=== PATIENT | male | born 1975 | race Caucasian/White ===

== ENCOUNTER 2018-05-07 05:13 | Day surgery (SDC) | payer BC, SELFPAY ==
[2018-04-23 15:44] VITALS: BMI 34.4
[2018-05-07] VITALS (16 sets, daily range): BP systolic 114–163; BP diastolic 75–104; PULSE 65–102; RESP 16; TEMP 36.4–37; O2SAT 97–100; BMI 34.1
--- NOTE | 2018-05-07 06:30 | COLBX_PTH ---
PATIENT: MANUEL PEREA LOC: EN U#:[id number] AGE/SX: 42/M ROOM: RE05/07/[address]: Dr. Jorge Gonzalez MD : 1975 BED: DIS: 05/07/2018 SPEC #: [id number] RECD: 05/07/18 09:33 STATUS: KEVIN RIGOBERTO #: [id number] CORRINE: 05/07/18 06:[address]: Jorge Gonzalez DEPT: SURGICAL PATHOLOGY RECD BY: Daisy Izaguirre ENTERED: 05/07/18 11:09 SP TYPE: COLON BX OT DR: Dr. Tami Aguayo MD Tissues: A - Transverse colon B - Descending colon C - Rectum, NOS Procedures: Surgery Specimen Level IV HEADER OPERATION: Colonoscopy (MOD) PRE-OP DIAGNOSIS: Rectal bleeding TISSUE SUBMITTED: A. Transverse colon polyp, B. Descending colon polyp, C. Rectal polyp MICROSCOPIC DIAGNOSIS A. Transverse colon polyp, biopsy: Tubular adenoma. B. Descending colon polyp, biopsy: Fragments of tubular adenoma. C. Rectal polyp, biopsy: Tubular adenoma. Fragments of fecal material. SJ:stu 05/08/18 MICROSCOPIC DESCRIPTION Slides are reviewed. GROSS DESCRIPTION A - Received in fixative is one container labeled with the patient's name and designated cecal polyp. The specimen consists of one irregular fragment of light rivera soft tissue that measures 0.3 x 0.3 x 0.1 cm. The specimen is totally submitted in one cassette. B - Received in fixative is one container labeled with the patient's name and designated descending colon polyp. The specimen consists of multiple irregular fragments of light rivera soft tissue that in aggregate measure 0.7 x 0.5 x 0.1 cm. The specimen is totally submitted in one cassette. C - Received in fixative is one container labeled with the patient's name and designated rectal polyps. The specimen consists of multiple irregular fragments of light rivera soft tissue including fecal debris that in aggregate measure 1.5 x 1 x 0.2 cm. The specimen is totally submitted in one cassette. / AM:stu 05/07/18 TC:1 CPT: 63091 x3
--- NOTE | 2018-05-07 07:19 | OP.ENDO_ITS ---
Patient Name: Jaren Styles Procedure Date: 05/07/2018 6:02 AM Date of : 1975 Age: 42 Procedure: Colonoscopy Indications: Rectal bleeding Providers: Jorge Gonzalez MD Referring MD: Tami Aguayo Medicines: Midazolam 8 mg IV, Meperidine 200 mg IV Patient Profile: Last Colonoscopy: none. The patient's first colonoscopy is today. Last Colonoscopy: none. The patient's first colonoscopy is today. Complications: No immediate complications. Procedure: Pre-Anesthesia Assessment: - Prior to the procedure, a History and Physical was performed, and patient medications and allergies were reviewed. The patient's tolerance of previous anesthesia was also reviewed. The risks and benefits of the procedure and the sedation options and risks were discussed with the patient. All questions were answered, and informed consent was obtained. Prior Anticoagulants: The patient has taken no previous anticoagulant or antiplatelet agents. ASA Grade Assessment: II - A patient with mild systemic disease. After reviewing the risks and benefits, the patient was deemed in satisfactory condition to undergo the procedure. After I obtained informed consent, the scope was passed under direct vision. Throughout the procedure, the patient's blood pressure, pulse, and oxygen saturations were monitored continuously. The colonoscope was introduced through the anus and advanced to the hepatic flexure. The colonoscopy was extremely difficult due to the patient's discomfort during the procedure. The patient tolerated the procedure poorly. The quality of the bowel preparation was good. Moderate Sedation: Moderate (conscious) sedation was personally administered by the endoscopist. The following parameters were monitored: oxygen saturation, heart rate, blood pressure, and response to care. Total physician intraservice time was 20 minutes. Scope In: 6:49:39 AM Scope Out: 7:09:10 AM Total Procedure Duration Time 0 hours 19 minutes 31 seconds Findings: The perianal and digital rectal examinations were normal. A 4 mm polyp was found in the mid transverse colon. The polyp was sessile. The polyp was removed with a cold biopsy forceps. Resection and retrieval were complete. A 5 mm polyp was found in the descending colon. The polyp was sessile. The polyp was removed with a cold biopsy forceps. Resection and retrieval were complete. A 6 mm polyp was found in the rectum. The polyp was sessile. The polyp was removed with a hot snare. Resection and retrieval were complete. Impression: - One 4 mm polyp in the mid transverse colon, removed with a cold biopsy forceps. Resected and retrieved. - One 5 mm polyp in the descending colon, removed with a cold biopsy forceps. Resected and retrieved. - One 6 mm polyp in the rectum, removed with a hot snare. Resected and retrieved. Procedure was incomplete secondary to patient anxiety. Will reschedule today with anesthesia Recommendation: - Repeat colonoscopy in 3 years for surveillance based on pathology results. - Continue present medications. Procedure Code(s): --- Professional --- 07324, 52, Colonoscopy, flexible; with removal of tumor(s), polyp(s), or other lesion(s) by snare technique 45074, 59,52, Colonoscopy, flexible; with biopsy, single or multiple 13660, 59, Moderate sedation services provided by the same physician or other qualified health patient care coordinator performing the diagnostic or therapeutic service that the sedation supports, requiring the presence of an independent trained observer to assist in the monitoring of the patient's level of consciousness and physiological status; initial 15 minutes of intraservice time, patient age 5 years or older Diagnosis Code(s): --- Professional --- D12.3, Benign neoplasm of transverse colon (hepatic flexure or splenic flexure) D12.4, Benign neoplasm of descending colon K62.1, Rectal polyp K62.5, Hemorrhage of anus and rectum CPT copyright 2017 [employer]. All rights reserved. The codes documented in this report are preliminary and upon jigger crown pouncing machine operator review may be revised to meet current compliance requirements. Jorge Gonzalez MD 05/07/2018 7:19:03 AM This report has been signed electronically. Number of Addenda: 0 Note Initiated On: 05/07/2018 6:02 AM
[2018-05-07 07:40] LABS: Bedside Glucose 258 mg/dL (70-110)
--- NOTE | 2018-05-07 11:31 | OP.ENDO_ITS ---
Patient Name: Jaren Styles Procedure Date: 05/07/2018 10:54 AM Date of : 1975 Age: 42 Procedure: Colonoscopy Indications: Rectal bleeding Providers: Jorge Gonzalez MD Referring MD: Tami Aguayo Medicines: See the Anesthesia note for documentation of the administered medications Patient Profile: Last Colonoscopy: none. The patient's first colonoscopy is today. Last Colonoscopy: none. The patient's first colonoscopy is today. Last Colonoscopy: none. The patient's first colonoscopy is today. Complications: No immediate complications. Procedure: Pre-Anesthesia Assessment: - Prior to the procedure, a History and Physical was performed, and patient medications and allergies were reviewed. The patient's tolerance of previous anesthesia was also reviewed. The risks and benefits of the procedure and the sedation options and risks were discussed with the patient. All questions were answered, and informed consent was obtained. Prior Anticoagulants: The patient has taken no previous anticoagulant or antiplatelet agents. ASA Grade Assessment: II - A patient with mild systemic disease. After reviewing the risks and benefits, the patient was deemed in satisfactory condition to undergo the procedure. - Prior to the procedure, a History and Physical was performed, and patient medications and allergies were reviewed. The patient's tolerance of previous anesthesia was also reviewed. The risks and benefits of the procedure and the sedation options and risks were discussed with the patient. All questions were answered, and informed consent was obtained. Prior Anticoagulants: The patient has taken no previous anticoagulant or antiplatelet agents. ASA Grade Assessment: II - A patient with mild systemic disease. After reviewing the risks and benefits, the patient was deemed in satisfactory condition to undergo the procedure. After I obtained informed consent, the scope was passed under direct vision. Throughout the procedure, the patient's blood pressure, pulse, and oxygen saturations were monitored continuously. The adult colonoscope was introduced through the anus and advanced to the cecum, identified by appendiceal orifice and ileocecal valve. The colonoscopy was performed without difficulty. The patient tolerated the procedure well. The quality of the bowel preparation was adequate to identify polyps. The ileocecal valve was photographed. Scope In: 11:05:24 AM Scope Withdrawal Time 0 hours 7 minutes 54 seconds Scope Out: 11:19:58 AM Total Procedure Duration Time 0 hours 14 minutes 34 seconds Findings: The perianal and digital rectal examinations were normal. The colon (entire examined portion) appeared normal. Impression: - The entire examined colon is normal. - No specimens collected. This was the second colonoscopy performed on him today. He was re-assessed for MAC anesthesia and an adult colonoscope was utilized. With this I was able to achieve the cecum. No additional polyps identified other than the three polyps earlier today. Will notify pt of path and recommendations. No rectal bleeding today. Suspect previous history likely hemorrhoids or resolved fissure. Pt has not had bleeding since his office visit and the start of the hydrocoritsone suppositories and diltiazem cream Recommendation: - Discharge patient to home. - Resume previous diet. - Continue present medications. - Await pathology results. - Telephone my office for pathology results in 1 week. - Repeat colonoscopy in 3 years for surveillance based on pathology results. Procedure Code(s): --- Professional --- 56254, Colonoscopy, flexible; diagnostic, including collection of specimen(s) by brushing or washing, when performed (separate procedure) Diagnosis Code(s): --- Professional --- K62.5, Hemorrhage of anus and rectum CPT copyright 2017 [employer]. All rights reserved. The codes documented in this report are preliminary and upon catechist review may be revised to meet current compliance requirements. Jorge Gonzalez MD 05/07/2018 11:30:52 AM This report has been signed electronically. Number of Addenda: 0 Note Initiated On: 05/07/2018 10:54 AM
--- OUTSIDE RECORDS SUMMARY | 2018-08-08 15:59 | XMS RPT_ITS ---
:1975 Author Organization [facility] Care Team Providers Name Role Phone Mary Carmenbul, Jorge Attending Unavailable Jolliff, Tami Referring Unavailable Cebul, Jorge Attending Unavailable Cebul, Jorge Referring Unavailable Cebul, Jorge Attending Unavailable Jolliff, Tami Primary Care Unavailable Jolliff, Tami Referring Unavailable PANCHO, SHARON M Attending Unavailable PANCHO, SHARON M Referring Unavailable PANCHO, SHARON M Referring Unavailable PANCHO, SHARON Attending Unavailable PANCHO, SHARON Referring Unavailable PANCHO, SHARON Attending Unavailable PANCHO, SHARON Referring Unavailable Jolliff, Tami Primary Care Unavailable PANCHO, SHARON Referring Unavailable Jolliff, Taim Primary Care Unavailable PROBLEMS PROBLEMS DATE TYPE CONDITION / CODE ATTENDING STATUS SOURCE 06/05/2018 Unknown K62.5 - Cebul, Jorge Active [facility] anus and rectum / Hospital K62.5(ICD-10) Repository 06/05/2018 Unknown K62.1 - Rectal Cebul, Jorge Active [place] polyp / Community K62.1(ICD-10) Hospital Repository 06/05/2018 Unknown D12.4 - Benign Cebul, Jorge Active [place] [facility] descending colon Hospital / D12.4(ICD-10) Repository 06/05/2018 Unknown D12.3 - Benign Cebul, Jorge Active [place] [facility] transverse colon Hospital / D12.3(ICD-10) Repository 04/27/2016 Active Type 1 diabetes [facility] mellitus with Other [place] unspecified Repository diabetic retinopathy without macular edema / E10.319(ICD-10) 05/03/2018 Active Family history of [facility] malignant Other [place] neoplasm of Repository prostate / Z80.42(ICD-10) 05/03/2018 Active Morbid (severe) [facility] obesity due to Other [place] excess calories / Repository E66.01(ICD-10) 05/03/2018 Active Body mass index [facility] (bmi) 36.0-36.9, Other [place] adult / Repository Z68.36(ICD-10) 04/27/2016 Admitting Unknown / [facility] UNK(Unknown) [facility] Repository PROCEDURES PROCEDURES No Procedure Records FoundRESULTS RESULTS PROGRESS Observed: 06/08/2018 Status: COMPLETED Source: [facility] 6:15 AM CLINIC OTHER CAMPUS REPOSITORY HNO ID: [id number] Author: Sharon M Pancho Service: (none) Author Type: Physician Type: Progress Notes Filed: 06/10/2018 7:12 PM Note Text: Christopher Styles is a 42 year old male who presents to follow up for Diabetes Diabetes Pertinent negatives for hypoglycemia include no dizziness, headaches, nervousness/anxiousness, seizures or tremors. Pertinent negatives for diabetes include no blurred vision, no chest pain, no polydipsia, no weakness and no weight loss. Current medication regimen: basal bolus. Blood glucose log: reviewed meter. HGBA1C (%) Date Value 05/03/2018 6.4 04/27/2017 6.2 ) BMI 35.07 kg/(m2) Discussed the patient's BMI with him. The BMI is above average; BMI management plan is completed. Current complications: Compliance: Good He is doing well Last 2 Encounter Wt Readings: Date: Wt: 05/03/2018 120.6 kg (265 lb 12.8 oz) 04/27/2017 118.8 kg (262 lb) Review of Systems Constitutional: Negative for chills, diaphoresis, fever, malaise/fatigue and weight loss. HENT: Negative for congestion, ear discharge, ear pain, hearing loss, nosebleeds, sore throat and tinnitus. Eyes: Negative for blurred vision, double vision, photophobia, pain, discharge and redness. Respiratory: Negative for cough, hemoptysis, sputum production, shortness of breath and wheezing. Cardiovascular: Negative for chest pain, palpitations, orthopnea, claudication, leg swelling and PND. Gastrointestinal: Negative for abdominal pain, blood in stool, constipation, diarrhea, heartburn, melena, nausea and vomiting. Genitourinary: Negative for dysuria, flank pain, frequency, hematuria and urgency. Musculoskeletal: Positive for back pain. Negative for falls, joint pain, myalgias and neck pain. Skin: Negative for itching and rash. Neurological: Negative for dizziness, tingling, tremors, sensory change, speech change, focal weakness, seizures, loss of consciousness, weakness and headaches. Endo/Heme/Allergies: Negative for environmental allergies and polydipsia. Does not bruise/bleed easily. Psychiatric/Behavioral: Negative for depression, hallucinations, memory loss, substance abuse and suicidal ideas. The patient is not nervous/anxious and does not have insomnia. 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 ([facility]) - Vitamin D deficiency PAST SURGICAL HISTORY Procedure Laterality Date - APPENDECTOMY 2004 - PAST SURGICAL HISTORY OF lump on posterior neck removed x3 - REM LESION FACE,EAR,EYE 2.1-3 CM 12-22-15 OCCIPITAL AREA FAMILY HISTORY Problem Relation Age of Onset - Breast Cancer Maternal Grandmother - Stroke Maternal Grandmother Social History Marital status: Spouse name: Years of education: Number of children: Social History Main Topics Smoking status: Never Smoker Smokeless tobacco: Never Used Alcohol use: Yes Comment: occasional - weekends Drug use: No Current Meds quinapril (ACCUPRIL) 10 mg tablet Take 1 tablet by mouth once daily. insulin needles, DISPOSABLE, (PEN NEEDLE) 31 gauge x 5/16 ndle 1 Each four times daily. insulin degludec (TRESIBA FLEXTOUCH U-200) 200 unit/mL (3 mL) injection Inject 38 Units subcutaneously every 24 hours. ONETOUCH ULTRA TEST test strip TEST 6-8 TIMES DAILY insulin aspart (NOVOLOG FLEXPEN) 100 unit/mL inpn Inject 20 Units subcutaneously three times daily with meals. diclofenac potassium (CATAFLAM) 50 mg tablet Take 50 mg by mouth twice daily. calcipotriene (DOVONEX) 0.005 % oint once daily. Multivitamin capsule Take 1 capsule by mouth once daily. ascorbic acid (VITAMIN C) 500 mg tablet Take 500 mg by mouth once daily. Cholecalciferol, Vitamin D3, (VITAMIN D-3) 2,000 unit cap Take 1 tablet by mouth once daily. Blood Sugar Diagnostic, Drum (ACCU-CHEK COMPACT TEST) strp For testing 6-8 times daily Lancets (ACCU-CHEK SOFTCLIX LANCETS) lancets Use as instructed Blood-Glucose Meter (ACCU-CHEK SHARAD) misc 8 times daily Objective BP 124/84 Ht 6' 1 (1.85m) Wt 265 lb 12.8 oz (120.6kg) BMI 35.08 kg/(m2). Physical Exam Constitutional: He is oriented to person, place, and time and well-developed, well-nourished, and in no distress. HENT: Head: Normocephalic and atraumatic. Mouth/Throat: Oropharynx is clear and moist. Eyes: Pupils are equal, round, and reactive to light. Conjunctivae and EOM are normal. Neck: Neck supple. Carotid bruit is not present. No thyromegaly present. Cardiovascular: Normal rate, regular rhythm and normal heart sounds. No murmur heard. Pulmonary/Chest: Effort normal and breath sounds normal. Abdominal: Soft. Musculoskeletal: He exhibits no edema. Lymphadenopathy: He has no cervical adenopathy. Neurological: He is alert and oriented to person, place, and time. No cranial nerve deficit. Gait normal. Skin: Skin is warm and dry. Psychiatric: Mood, memory, affect and judgment normal. Feet:Shoes and socks removed, normal distal pulses and vibratory perception normal. ASSESSMENT/PLAN: 1. Type 1 diabetes mellitus with retinopathy without macular edema, unspecified laterality, unspecified retinopathy severity (HCC) - ICD9: 250.51, 362.01, ICD10: E10.319 (primary diagnosis) Controlled. - Continue current medications - HGBA1C B/O (AG) - ALBUMIN/CREAT RATIO RND UR - COMP METABOLIC PANEL - LIPID PANEL BASIC - TSH BLD - LANCETS - BLOOD-GLUCOSE METER 2. Family history of prostate cancer - ICD9: V16.42, ICD10: Z80.42 - PSA/PROSTSPECAG SCRN 3. Class 2 severe obesity due to excess calories with serious comorbidity and body mass index (BMI) of 36.0 to 36.9 in adult (HCC) - ICD9: 278.01, V85.36, ICD10: E66.01, Z68.36 Nutritional counseling provided, avoid flour, sugar, and artificial sweeteners. Sharon Deleon MD OBSOLETE Observed: 06/01/2018 Status: COMPLETED Source: [facility] 12:00 AM CLINIC OTHER CAMPUS REPOSITORY Refill (AGENDOG) MANUEL STYLES ([id number]) 1975 Renato HERMOSILLO Date Time Provider Department 06/01/18 SHARON DELEON During your visit today, we recorded the following information about you: Yaz Brown 06/01/2018 9:43 AM Signed Last visit 04/2018 Next visit 04/2019 Yaz Brown Allergies As of Date: 06/01/2018 (No Known Allergies) Date Reviewed: 05/03/2018 Reviewed by: Era Dalton - Fully Assessed Reason for Visit: Refill Request [94] Order(s):Blood Sugar Diagnostic, Drum (ACCU-CHEK COMPACT TEST) strpFor testing 6-8 times dailyDisp: 700 StripRfl: 1 Prescriptions as of 06/01/2018 Sig: BLOOD SUGAR DIAGNOSTIC, DRUM-* For testing 6-8 times daily QUINAPRIL 10 MG TABLET Take 1 tablet by mouth once d* LANCETS Use as instructed BLOOD-GLUCOSE METER 8 times daily PEN NEEDLE, DIABETIC 31 GAUGE* 1 Each four times daily. INSULIN DEGLUDEC (U-200) 200 * Inject 38 Units subcutaneousl* ONETOUCH ULTRA TEST STRIPS TEST 6-8 TIMES DAILY INSULIN ASPART U-100 100 UNI* Inject 20 Units subcutaneousl* DICLOFENAC POTASSIUM 50 MG TA* Take 50 mg by mouth twice jj* CALCIPOTRIENE 0.005 % TOPICAL* once daily. MULTIVITAMIN CAPSULE Take 1 capsule by mouth once * ASCORBIC ACID (VITAMIN C) 500* Take 500 mg by mouth once jj* CHOLECALCIFEROL (VITAMIN D3) * Take 1 tablet by mouth once d* Problem List As Of Date 06/01/2018 Noted Resolved Skin lesion [L98.9] INVALID FOR* Diabetes mellitus type 1, controlled, without c*INVALID FOR*04/28/2017 Constitutional obesity [E66.8] INVALID FOR* Lipoma of neck [D17.0] INVALID FOR* Type 1 diabetes mellitus with diabetic retinopa* Autoimmune lymphocytic chronic thyroiditis [E06* Insulin long-term use (HCC) [Z79.4] Obesity (BMI 30-39.9) [E66.9] Diabetes mellitus type I, controlled (HCC) [E10* Prescriptions ordered this encounter Disp Refills Start End BLOOD SUGAR DIAGNOSTIC, DRUM-TYPE ST* 700 * 1 06/04/2018 Sig: For testing 6-8 times daily Encounter Status:Closed by YAZ BROWN on 06/07/18 OPERATIVE REPORT - Observed: 05/07/2018 Status: F Source: [facility] [facility] 11:31 AM [facility] Medical Records Department [address] [place] [id number] Operative Report - Endoscopy MR#: [id number] Acct: [id number] Name: MANUEL STYLES Rep #: [id number] : 1975 42 From: Jorge Gonzalez MD PCP: Tami Aguayo MD [place] [facility] [place] Name: Manuel Styles Procedure Date: 05/07/2018 10:54 AM Date of : 1975 Age: 42 Procedure: Colonoscopy Indications: Rectal bleeding Providers: Jorge Gonzalez MD Referring MD: Tami Aguayo Medicines: See the Anesthesia note for documentation of the administered medications Patient Profile: Last Colonoscopy: none. The patient's first colonoscopy is today. Last Colonoscopy: none. The patient's first colonoscopy is today. Last Colonoscopy: none. The patient's first colonoscopy is today. Complications: No immediate complications. Procedure: Pre-Anesthesia Assessment: - Prior to the procedure, a History and Physical was performed, and patient medications and allergies were reviewed. The patient's tolerance of previous anesthesia was also reviewed. The risks and benefits of the procedure and the sedation options and risks were discussed with the patient. All questions were answered, and informed consent was obtained. Prior Anticoagulants: The patient has taken no previous anticoagulant or antiplatelet agents. ASA Grade Assessment: II - A patient with mild systemic disease. After reviewing the risks and benefits, the patient was deemed in satisfactory condition to undergo the procedure. - Prior to the procedure, a History and Physical was performed, and patient medications and allergies were reviewed. The patient's tolerance of previous anesthesia was also reviewed. The risks and benefits of the procedure and the sedation options and risks were discussed with the patient. All questions were answered, and informed consent was obtained. Prior Anticoagulants: The patient has taken no previous anticoagulant or antiplatelet agents. ASA Grade Assessment: II - A patient with mild systemic disease. After reviewing the risks and benefits, the patient was deemed in satisfactory condition to undergo the procedure. After I obtained informed consent, the scope was passed under direct vision. Throughout the procedure, the patient's blood pressure, pulse, and oxygen saturations were monitored continuously. The adult colonoscope was introduced through the anus and advanced to the cecum, identified by appendiceal orifice and ileocecal valve. The colonoscopy was performed without difficulty. The patient tolerated the procedure well. The quality of the bowel preparation was adequate to identify polyps. The ileocecal valve was photographed. Scope In: 11:05:24 AM Scope Withdrawal Time 0 hours 7 minutes 54 seconds Scope Out: 11:19:58 AM Total Procedure Duration Time 0 hours 14 minutes 34 seconds Findings: The perianal and digital rectal examinations were normal. The colon (entire examined portion) appeared normal. Impression: - The entire examined colon is normal. - No specimens collected. This was the second colonoscopy performed on him today. He was re-assessed for MAC anesthesia and an adult colonoscope was utilized. With this I was able to achieve the cecum. No additional polyps identified other than the three polyps earlier today. Will notify pt of path and recommendations. No rectal bleeding today. Suspect previous history likely hemorrhoids or resolved fissure. Pt has not had bleeding since his office visit and the start of the hydrocoritsone suppositories and diltiazem cream Recommendation: - Discharge patient to home. - Resume previous diet. - Continue present medications. - Await pathology results. - Telephone my office for pathology results in 1 week. - Repeat colonoscopy in 3 years for surveillance based on pathology results. Procedure Code(s): --- Professional --- 75117, Colonoscopy, flexible; diagnostic, including collection of specimen(s) by brushing or washing, when performed (separate procedure) Diagnosis Code(s): --- Professional --- K62.5, Hemorrhage of anus and rectum CPT copyright 2017 [employer]. All rights reserved. The codes documented in this report are preliminary and upon chief librarian branch review may be revised to meet current compliance requirements. Jorge Gonzalez MD 05/07/2018 11:30:52 AM This report has been signed electronically. Number of Addenda: 0 Note Initiated On: 05/07/2018 10:54 AM 05/07/18 1131 Date Jorge Gonzalez MD Cosigner Signature: Date (if indicated) CC: Tami Aguayo MD; Jorge Gonzalez MD Date Dictated: 05/07/18 1054 Date Transcribed: Can Vacuum Tester: LINDSEY Signed BEDSIDE GLUCOSE Collected: 05/07/2018 Status: F Source: [place] 7:20 AM [facility] REPOSITORY TYPE CODE TESTS RESULT OUT OF REFERENCE UNITS RANGE LAB L501.080 70-110 mg/dL High BEDSIDE GLU 258 Result Comment: MANAGEMENT OF PATIENT CARE PER NURSING PROTOCOL Performed By: #### L501.080 #### [facility] Point of Care [address] [place], [place] [address] OPERATIVE REPORT - Observed: 05/07/2018 Status: F Source: [facility] 7:19 AM [facility] REPOSITORY [facility] Medical Records Department [address] [place] [address] Operative Report - Endoscopy MR#: [id number] Acct: [id number] Name: MANUEL STYLES Rep #: [id number] : 1975 42 From: Jorge Gonzalez MD PCP: Tami Aguayo MD [place] [facility] [place] Name: Manuel Styles Procedure Date: 05/07/2018 6:02 AM Date of : 1975 Age: 42 Procedure: Colonoscopy Indications: Rectal bleeding Providers: Jorge Gonzalez MD Referring MD: Tami Aguayo Medicines: Midazolam 8 mg IV, Meperidine 200 mg IV Patient Profile: Last Colonoscopy: none. The patient's first colonoscopy is today. Last Colonoscopy: none. The patient's first colonoscopy is today. Complications: No immediate complications. Procedure: Pre-Anesthesia Assessment: - Prior to the procedure, a History and Physical was performed, and patient medications and allergies were reviewed. The patient's tolerance of previous anesthesia was also reviewed. The risks and benefits of the procedure and the sedation options and risks were discussed with the patient. All questions were answered, and informed consent was obtained. Prior Anticoagulants: The patient has taken no previous anticoagulant or antiplatelet agents. ASA Grade Assessment: II - A patient with mild systemic disease. After reviewing the risks and benefits, the patient was deemed in satisfactory condition to undergo the procedure. After I obtained informed consent, the scope was passed under direct vision. Throughout the procedure, the patient's blood pressure, pulse, and oxygen saturations were monitored continuously. The colonoscope was introduced through the anus and advanced to the hepatic flexure. The colonoscopy was extremely difficult due to the patient's discomfort during the procedure. The patient tolerated the procedure poorly. The quality of the bowel preparation was good. Moderate Sedation: Moderate (conscious) sedation was personally administered by the endoscopist. The following parameters were monitored: oxygen saturation, heart rate, blood pressure, and response to care. Total physician intraservice time was 20 minutes. Scope In: 6:49:39 AM Scope Out: 7:09:10 AM Total Procedure Duration Time 0 hours 19 minutes 31 seconds Findings: The perianal and digital rectal examinations were normal. A 4 mm polyp was found in the mid transverse colon. The polyp was sessile. The polyp was removed with a cold biopsy forceps. Resection and retrieval were complete. A 5 mm polyp was found in the descending colon. The polyp was sessile. The polyp was removed with a cold biopsy forceps. Resection and retrieval were complete. A 6 mm polyp was found in the rectum. The polyp was sessile. The polyp was removed with a hot snare. Resection and retrieval were complete. Impression: - One 4 mm polyp in the mid transverse colon, removed with a cold biopsy forceps. Resected and retrieved. - One 5 mm polyp in the descending colon, removed with a cold biopsy forceps. Resected and retrieved. - One 6 mm polyp in the rectum, removed with a hot snare. Resected and retrieved. Procedure was incomplete secondary to patient anxiety. Will reschedule today with anesthesia Recommendation: - Repeat colonoscopy in 3 years for surveillance based on pathology results. - Continue present medications. Procedure Code(s): --- Professional --- 26551, 52, Colonoscopy, flexible; with removal of tumor(s), polyp(s), or other lesion(s) by snare technique 33329, 59,52, Colonoscopy, flexible; with biopsy, single or multiple 77511, 59, Moderate sedation services provided by the same physician or other qualified health acute care registered nurse performing the diagnostic or therapeutic service that the sedation supports, requiring the presence of an independent trained observer to assist in the monitoring of the patient's level of consciousness and physiological status; initial 15 minutes of intraservice time, patient age 5 years or older Diagnosis Code(s): --- Professional --- D12.3, Benign neoplasm of transverse colon (hepatic flexure or splenic flexure) D12.4, Benign neoplasm of descending colon K62.1, Rectal polyp K62.5, Hemorrhage of anus and rectum CPT copyright 2017 [employer]. All rights reserved. The codes documented in this report are preliminary and upon chief librarian branch review may be revised to meet current compliance requirements. Jorge Gonzalez MD 05/07/2018 7:19:03 AM This report has been signed electronically. Number of Addenda: 0 Note Initiated On: 05/07/2018 6:02 AM 05/07/18 0719 Date Jorge Gonzalez MD Cosigner Signature: Date (if indicated) CC: Tami Aguayo MD; Jorge Gonzalez MD Date Dictated: 05/07/18601 Date Transcribed: Can Vacuum Tester: LINDSEY Signed COLON BIOPSY (CHOOSE Observed: 05/07/2018 Status: F Source: [place] [facility]) 6:30 AM [facility] REPOSITORY Patient: MANUEL STYLES : 1975 (42/M) Acct Num: [id number] Phys: Carlos SHAW,Jorge Unit Num: [id number] Loc: EN Specimen: [id number] Received: 05/07/18932 Spec Type: COLON BX TISSUES 1 TISSUES: A. Transverse colon B. Descending colon C. Rectum, NOS GROSS DESCRIPTION A - Received in fixative is one container labeled with the patient's name and designated cecal polyp. The specimen consists of one irregular fragment of light rivera soft tissue that measures 0.3 x 0.3 x 0.1 cm. The specimen is totally submitted in one cassette. B - Received in fixative is one container labeled with the patient's name and designated descending colon polyp. The specimen consists of multiple irregular fragments of light rivera soft tissue that in aggregate measure 0.7 x 0.5 x 0.1 cm. The specimen is totally submitted in one cassette. C - Received in fixative is one container labeled with the patient's name and designated rectal polyps. The specimen consists of multiple irregular fragments of light rivera soft tissue including fecal debris that in aggregate measure 1.5 x 1 x 0.2 cm. The specimen is totally submitted in one cassette. / AM:stu 05/07/18 TC:1 CPT: 62928 x3 HEADER OPERATION: Colonoscopy (MOD) PRE-OP DIAGNOSIS: Rectal bleeding TISSUE SUBMITTED: A. Transverse colon polyp, B. Descending colon polyp, C. Rectal polyp MICROSCOPIC DESCRIPTION Slides are reviewed. MICROSCOPIC DIAGNOSIS A. Transverse colon polyp, biopsy: Tubular adenoma. B. Descending colon polyp, biopsy: Fragments of tubular adenoma. C. Rectal polyp, biopsy: Tubular adenoma. Fragments of fecal material. SJ:stu 05/08/18 Signed Mars Frye MD 05/08/18 <signature on file> Performed By: #### PCOLBX #### [facility] [address] [place], [address] COMPREHENSIVE PANEL Collected: 05/03/2018 Status: F Source: [facility] 2:45 PM [facility] REPOSITORY TYPE CODE TESTS RESULT OUT OF REFERENCE UNITS RANGE LAB NA(LOINC) 136-145 mEq/L Sodium Blood 139 LAB K(LOINC) 3.5-5.1 mEq/L Potassium Blood 4.2 LAB CL(LOINC) 98-107 mEq/L Chloride Blood 103 LAB CO2(LOINC) 21-32 mEq/L CO2 Blood 30 LAB GLU(LOINC) 70-99 mg/dL Low Glucose Blood 68 LAB BUN(LOINC) 7-18 mg/dL BUN Blood 16 LAB CREA(LOINC 0.67-1.17 mg/dL ) Creatinine Blood 0.99 LAB CA(LOINC) 8.5-10.1 mg/dL Calcium Blood 9.4 LAB ALB(LOINC) 3.4-5.0 g/dL Albumin Blood 4.2 LAB TP(LOINC) 6.4-8.2 g/dL Total Protein 7.0 LAB AST(LOINC) 9-37 U/L AST-SGOT Blood 20 LAB ALT(LOINC) 12-78 U/L ALT-SGPT Blood 38 LAB ALKP(LOINC 46-116 U/L ) Alk Phosphatase 70 LAB BILIT(LOIN 0.2-1.0 mg/dL C) Total Bilirubin 0.9 LAB ANGAP(LOIN 8-16 C) Anion Gap 10 Performed By: #### P14 #### [facility] [address] [place] [address] LIPID PROFILE Collected: 05/03/2018 Status: F Source: [facility] 2:45 PM [facility] REPOSITORY TYPE CODE TESTS RESULT OUT OF REFERENCE UNITS RANGE LAB CHOL(LOINC 0-199 mg/dL ) Cholesterol Blood 179 Result Comment: <200 Desirable 200-240 Borderline >240 High LAB TRIG(LOINC) 0-149 mg/dL Triglyceride Blood 117 Result Comment: < 200 Desirable Result invalid if not a fasting specimen. LAB HDL2(LOINC) >40 mg/dL HDL Cholesterol 55 LAB CHHDL(LOINC) 2.1-7.3 CHOL/HDL 3.3 LAB LDL(LOINC) mg/dL LDL (Calculated) 101 Result Comment: No CAD and with fewer than 2 CAD risk factors <160 mg/dL No CAD but with 2 or more CAD risk factors <130 mg/dL Definite CAD or other atherosclerotic disease <100 mg/dL LAB VLDL(LOINC) <50 Desired mg/dL VLDL Cholesterol 23 LAB LDHDL(LOINC) 1.1-4.8 LDL/HDL 1.8 Result Comment: LDL,VLDL,LDL/HDL, Invalid if Triglyceride >400 Performed By: #### LIPD2 #### [place] [address] MDRD GFR Collected: 05/03/2018 Status: F Source: [facility] 2:45 [facility] SYSTEM REPOSITORY TYPE CODE TESTS RESULT OUT OF RANGE REFERENCE UNITS LAB GFRFN(LOINC >60mL/min/1.73m ) 2 eGFR >60 Result Comment: If the patient is , multiply the result by 1.210. Performed By: #### GFR #### [place] [address] TSH, 3RD GENERATION Collected: 05/03/2018 Status: F Source[facility] 2:45 PM [facility] REPOSITORY TYPE CODE TESTS RESULT OUT OF REFERENCE UNITS RANGE LAB TSH3(LOINC 0.358-3.740 uIU/mL ) TSH, 3rd generation 1.070 Performed By: #### TSH3 #### [place] [address] MICROALB/CREAT, RANDOM Collected: 05/03/2018 Status: F Source: [place] 2:45 PM [facility] REPOSITORY TYPE CODE TESTS RESULT OUT OF RANGE REFERENCE UNITS LAB CREAU(LOINC mg/dL ) 137.0 Creatinine,U rine LAB MAR(LOINC) 0.20-2.50 mg/dL 0.57 Microalbumin ,Random LAB MACRE(LOINC 0.10-30.00 mg/g ) MA/Creat 4.16 Ratio Performed By: #### MALBR #### [place] [address] PSA SCREEN Collected: 05/03/2018 Status: F Source: [facility] 2:45 PM [facility] REPOSITORY TYPE CODE TESTS RESULT OUT OF REFERENCE UNITS RANGE LAB PSAS(LOINC) 0.00-3.90 ng/mL PSA Screen 0.57 Performed By: #### PSAS #### [facility] [address] [place], [place] [address] CNOV Observed: 05/03/2018 Status: COMPLETED Source: [place] 2:00 PM CLINIC OTHER CAMPUS REPOSITORY Office Visit (AGENDOG) MANUEL STYLES ([id number]) 1975 M [facility] Date Time Provider Department 05/03/18 2:00 PM SHARON DELEON During your visit today, we recorded the following information about you: Blood pressure Weight Height 124/84 120.6 kg 1.854 m Sharon Deleon MD 06/10/2018 7:12 PM Signed Subjective Manuel Styles is a 42 year old male who presents to follow up for Diabetes Diabetes Pertinent negatives for hypoglycemia include no dizziness, headaches, nervousness/anxiousness, seizures or tremors. Pertinent negatives for diabetes include no blurred vision, no chest pain, no polydipsia, no weakness and no weight loss. Current medication regimen: basal bolus. Blood glucose log: reviewed meter. HGBA1C (%) Date Value 05/03/2018 6.4 04/27/2017 6.2 ) BMI 35.07 kg/(m2) Discussed the patient's BMI with him. The BMI is above average; BMI management plan is completed. Current complications: Compliance: Good He is doing well Last 2 Encounter Wt Readings: Date: Wt: 05/03/2018 120.6 kg (265 lb 12.8 oz) 04/27/2017 118.8 kg (262 lb) Review of Systems Constitutional: Negative for chills, diaphoresis, fever, malaise/fatigue and weight loss. HENT: Negative for congestion, ear discharge, ear pain, hearing loss, nosebleeds, sore throat and tinnitus. Eyes: Negative for blurred vision, double vision, photophobia, pain, discharge and redness. Respiratory: Negative for cough, hemoptysis, sputum production, shortness of breath and wheezing. Cardiovascular: Negative for chest pain, palpitations, orthopnea, claudication, leg swelling and PND. Gastrointestinal: Negative for abdominal pain, blood in stool, constipation, diarrhea, heartburn, melena, nausea and vomiting. Genitourinary: Negative for dysuria, flank pain, frequency, hematuria and urgency. Musculoskeletal: Positive for back pain. Negative for falls, joint pain, myalgias and neck pain. Skin: Negative for itching and rash. Neurological: Negative for dizziness, tingling, tremors, sensory change, speech change, focal weakness, seizures, loss of consciousness, weakness and headaches. Endo/Heme/Allergies: Negative for environmental allergies and polydipsia. Does not bruise/bleed easily. Psychiatric/Behavioral: Negative for depression, hallucinations, memory loss, substance abuse and suicidal ideas. The patient is not nervous/anxious and does not have insomnia. 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) - Vitamin D deficiency PAST SURGICAL HISTORY Procedure Laterality Date - APPENDECTOMY 2004 - PAST SURGICAL HISTORY OF lump on posterior neck removed x3 - REM LESION FACE,EAR,EYE 2.1-3 CM 05-12-15 OCCIPITAL AREA FAMILY HISTORY Problem Relation Age of Onset - Breast Cancer Maternal Grandmother - Stroke Maternal Grandmother Social History Marital status: Spouse name: Years of education: Number of children: Social History Main Topics Smoking status: Never Smoker Smokeless tobacco: Never Used Alcohol use: Yes Comment: occasional - weekends Drug use: No Current Meds quinapril (ACCUPRIL) 10 mg tablet Take 1 tablet by mouth once daily. insulin needles, DISPOSABLE, (PEN NEEDLE) 31 gauge x 5/16 ndle 1 Each four times daily. insulin degludec (TRESIBA FLEXTOUCH U-200) 200 unit/mL (3 mL) injection Inject 38 Units subcutaneously every 24 hours. ONETOUCH ULTRA TEST test strip TEST 6-8 TIMES DAILY insulin aspart (NOVOLOG FLEXPEN) 100 unit/mL inpn Inject 20 Units subcutaneously three times daily with meals. diclofenac potassium (CATAFLAM) 50 mg tablet Take 50 mg by mouth twice daily. calcipotriene (DOVONEX) 0.005 % oint once daily. Multivitamin capsule Take 1 capsule by mouth once daily. ascorbic acid (VITAMIN C) 500 mg tablet Take 500 mg by mouth once daily. Cholecalciferol, Vitamin D3, (VITAMIN D-3) 2,000 unit cap Take 1 tablet by mouth once daily. Blood Sugar Diagnostic, Drum (ACCU-CHEK COMPACT TEST) strp For testing 6-8 times daily Lancets (ACCU-CHEK SOFTCLIX LANCETS) lancets Use as instructed Blood-Glucose Meter (ACCU-CHEK SHARAD) misc 8 times daily Objective BP 124/84 Ht 6' 1 (1.85m) Wt 265 lb 12.8 oz (120.6kg) BMI 35.08 kg/(m2). Physical Exam Constitutional: He is oriented to person, place, and time and well-developed, well-nourished, and in no distress. HENT: Head: Normocephalic and atraumatic. Mouth/Throat: Oropharynx is clear and moist. Eyes: Pupils are equal, round, and reactive to light. Conjunctivae and EOM are normal. Neck: Neck supple. Carotid bruit is not present. No thyromegaly present. Cardiovascular: Normal rate, regular rhythm and normal heart sounds. No murmur heard. Pulmonary/Chest: Effort normal and breath sounds normal. Abdominal: Soft. Musculoskeletal: He exhibits no edema. Lymphadenopathy: He has no cervical adenopathy. Neurological: He is alert and oriented to person, place, and time. No cranial nerve deficit. Gait normal. Skin: Skin is warm and dry. Psychiatric: Mood, memory, affect and judgment normal. Feet:Shoes and socks removed, normal distal pulses and vibratory perception normal. ASSESSMENT/PLAN: 1. Type 1 diabetes mellitus with retinopathy without macular edema, unspecified laterality, unspecified retinopathy severity (HCC) - ICD9: 250.51, 362.01, ICD10: E10.319 (primary diagnosis) Controlled. - Continue current medications - HGBA1C B/O (AG) - ALBUMIN/CREAT RATIO RND UR - COMP METABOLIC PANEL - LIPID PANEL BASIC - TSH BLD - LANCETS - BLOOD-GLUCOSE METER 2. Family history of prostate cancer - ICD9: V16.42, ICD10: Z80.42 - PSA/PROSTSPECAG SCRN 3. Class 2 severe obesity due to excess calories with serious comorbidity and body mass index (BMI) of 36.0 to 36.9 in adult ([facility]) - ICD9: 278.01, V85.36, ICD10: E66.01, Z68.36 Nutritional counseling provided, avoid flour, sugar, and artificial sweeteners. Sharon Deleon MD Referring Provider: SHARON DELEON [[id number]] Allergies As of Date: 05/03/2018 (No Known Allergies) Date Reviewed: 05/03/2018 Reviewed by: Era Dalton - Fully Assessed Reason for Visit: Diabetes [34] Primary Visit Diagnosis:Type 1 diabetes mellitus with retinopathy without macular edema, unspecified laterality, unspecified retinopathy severity ([facility]) [E10.319] Other Visit Diagnoses:Family history of prostate cancer [Z80.42] Class 2 severe obesity due to excess calories with serious comorbidity and body mass index (BMI) of 36.0 to 36.9 in adult ([facility]) [E66.01, Z68.36] Order(s):HGBA1C B/O (AG) [2914398] Order #: [id number] quinapril (ACCUPRIL) 10 mg tabletTake 1 tablet by mouth once daily.Disp: 90 tabletRfl: 3 ALBUMIN/CREAT RATIO RND UR [SQUACR] Order #: [id number] FUTURE COMP METABOLIC PANEL [SQCMP] Order #: [id number] FUTURE LIPID PANEL BASIC [SQLIPB] Order #: [id number] FUTURE TSH BLD [SQTSH] Order #: [id number] FUTURE PSA/PROSTSPECAG SCRN [SQPSAS1] Order #: [id number] FUTURE Lancets (ACCU-CHEK SOFTCLIX LANCETS) lancetsUse as instructedDisp: Rfl: Blood-Glucose Meter (ACCU-CHEK SHARAD) misc8 times dailyDisp: Rfl: Prescriptions as of 05/03/2018 Sig: QUINAPRIL 10 MG TABLET Take 1 tablet by mouth once d* PEN NEEDLE, DIABETIC 31 GAUGE* 1 Each four times daily. INSULIN DEGLUDEC (U-200) 200 * Inject 38 Units subcutaneousl* ONETOUCH ULTRA TEST STRIPS TEST 6-8 TIMES DAILY INSULIN ASPART U-100 100 UNI* Inject 20 Units subcutaneousl* DICLOFENAC POTASSIUM 50 MG TA* Take 50 mg by mouth twice jj* CALCIPOTRIENE 0.005 % TOPICAL* once daily. MULTIVITAMIN CAPSULE Take 1 capsule by mouth once * ASCORBIC ACID (VITAMIN C) 500* Take 500 mg by mouth once jj* CHOLECALCIFEROL (VITAMIN D3) * Take 1 tablet by mouth once d* LANCETS Use as instructed BLOOD-GLUCOSE METER 8 times daily Problem List As Of Date 05/03/2018 Noted Resolved Skin lesion [L98.9] INVALID FOR* Diabetes mellitus type 1, controlled, without c*INVALID FOR*04/28/2017 Constitutional obesity [E66.8] INVALID FOR* Lipoma of neck [D17.0] INVALID FOR* Type 1 diabetes mellitus with diabetic retinopa* Autoimmune lymphocytic chronic thyroiditis [E06* Insulin long-term use (HCC) [Z79.4] Obesity (BMI 30-39.9) [E66.9] Diabetes mellitus type I, controlled (HCC) [E10* Prescriptions ordered this encounter Disp Refills Start End QUINAPRIL 10 MG TABLET 90 t* 3 05/03/2018 Route: ORAL Sig: Take 1 tablet by mouth once daily. LANCETS 05/03/2018 Class: Med Update Sig: Use as instructed BLOOD-GLUCOSE METER 05/03/2018 Class: Med Update Si times daily Medications Discontinued During This Encounter flash glucose sensor (FREESTYLE LIBR* 3 Ea* 5 04/27/2017 05/03/2018 Sig: Change every 10 days Disc: Reason for discontinue is not on file. flash glucose scanning reader (FREES* 1 Ea* 0 04/27/2017 05/03/2018 Route: Miscell. (Med.Supl.;Non-Drugs) Si Each continuous. Disc: Reason for discontinue is not on file. sertraline (ZOLOFT) 50 mg tablet 90 t* 1 04/27/2016 05/03/2018 Route: ORAL Sig: Take 1 tablet by mouth once daily. Disc: Reason for discontinue is not on file. quinapril (ACCUPRIL) 10 mg tablet 90 t* 3 04/19/2017 05/03/2018 Route: ORAL Sig: Take 1 tablet by mouth once daily. Disc: Reason for discontinue is not on file. Blood-Glucose Meter (ACCU-CHEK HERMILO* 05/03/2018 Class: Historical Med Route: Miscell. (Med.Supl.;Non-Drugs) Sig: Disc: Reason for discontinue is not on file. blood sugar diagnostic (ACCU-CHEK AV* 05/03/2018 Class: Historical Med Route: OTHER Sig: before meals and at bedtime. Use as instructed Disc: Reason for discontinue is not on file. Encounter Status:Closed by SHARON DELEON MD on 06/10/18 SURGERY VISIT REPORT Observed: 04/23/2018 Status: F Source: [place] 4:41 PM [facility] REPOSITORY [facility] [address] [place] [address]. [address] [place] [address] OFFICE VISIT Date of Service: 04/23/18 MR#: [id number] Acct: [id number] Name: MANUEL STYLES Nerissa Rep #: [id number] : 1975 Provider: Jorge Gonzalez MD Age/Sex: 42/M Location: [facility] Status: Signed Intake Vital Signs04/23/18 Height 6 ft 1.5 in 04/23/18 Weight: 265 lb 2 oz 04/23/18 Body Mass Index (BMI) 34.4 04/23/18 Blood Pressure 136/90 H Intake Visit Reasons: ANAL FISSURE Chief Complaint: anal fissure Layout Artist Required: No Is patient in pain?: No Allergies No Known Allergies Allergy (Verified 04/23/18 15:45) Medications ascorbic acid (vitamin C) 500 mg capsule mg PO cap 04/23/18 [History Confirmed 04/23/18] calcipotriene 0.005 % topical ointment 1 applic TOPICAL DAILY 04/23/18 [History Confirmed 04/23/18] clocortolone pivalate 0.1 % topical cream 1 applic TOPICAL TID 04/23/18 [History Confirmed 04/23/18] diclofenac potassium 50 mg tablet 50 mg PO BID 04/23/18 [History Confirmed 04/23/18] insulin aspart U- 100 100 unit/mL subcutaneous pen 20 unit SC QAM 04/23/18 [History Confirmed 04/23/18] insulin degludec (U-100) 100 unit/mL (3 mL) subcutaneous pen 100 unit SC QHS 04/23/18 [History Confirmed 04/23/18] multivitamin,tm-evog-kcezopyt tablet 1 tab PO DAILY 04/23/18 [History Confirmed 04/23/18] quinapril 10 mg tablet 10 mg PO DAILY 04/23/18 [History Confirmed 04/23/18] zinc 50 mg tablet 50 mg PO DAILY 04/23/18 [History Confirmed 04/23/18] [facility] Medical History Rectal bleeding (Acute) Diabetes type 1, controlled (Acute) Psoriasis (Acute) Rectal fissure (Acute) Surgical History History of appendectomy (Acute) History of lateral meniscus repair of left knee (Acute) Family History Father Cancer prostate Mother Cancer uterine Social History Smoking Status: Never smoker HPI HPI HPI: MANUEL STYLES, is a 42 M who presents to the office today for surgical consultation regarding rectal bleeding and intermittent rectal pain. 42-year-old type I diabetic. Family history is notable for his father having had colon polyps but he does not recall a history of colon cancer. Over the past couple months the patient has had some intermittent bright red rectal bleeding. More recently the episodes have become more frequent with more profuse bleeding. He has had a slight change of bowel habits with more constipation. He has had change of bowel habits with incomplete defecation but then further fecal leakage. He is intentionally been trying to lose a small amount of weight. He has been placed on MiraLAX with improved bowel habit but persistent constipation pain and bleeding. He has not been on any fiber supplements suppositories or ointments as of yet. He has not had a colonoscopy. ROS General General: No weight change, appetite, fatigue, colon cancer, breast cancer or weakness HEENT HEENT: No difficulty swallowing, eye injury, eye surgery, swollen glands or hoarseness Endo Endocrine: Yes diabetes mellitus; no thyroid disease, thyroid cancer, Hair loss, heat intolerance or cold intolerance Skin Additional Details: psoriasis Cardio Cardiovascular: No murmur, pacemaker, heart disease, atrial fibrillation, high blood pressure, heart attack, heart stent, palpitations, shortness of breat with exertion or chest pain Resp Respiratory: No shortness of breath, No sleep apnea, No cough, No COPD, No asthma, No emphysema, No wheezing Gastro Gastrointestinal: No abdominal pain, No nausea or vomiting, No diarrhea, No constipation, No blood in stool, No acid reflux, No hemorrhoids, No ulcers, No gallbladder problem, No black,tarry stools Elmo Hematologic: No blood thinners, No blood disorders, No bleeding, No anemia, No blood clots Neuro Neurologic: No weakness Exam Const General: cooperative, healthy appearing, comfortable, no acute distress Nutritional Appearance: overweight Orientation: alert, oriented x3, awake Eyes General: appearance normal, both eyes and all related structures Chest Chest palpation AND inspection: normal inspection of the chest Resp Effort AND Inspection: normal respiratory effort Auscultation: clear to auscultation bilaterally Cardio Rate: regular rate Rhythm: regular rhythm Heart Sounds: no murmurs GI Palpation: soft Auscultation: normal bowel sounds Other: No obvious blood in the perianal area. Suggestion of possibility of an anterior anal fissure but no bleeding. Musc Cervical Spine: normal cervical lordosis Neuro Cranial Nerves: CN's II-XI intact bilaterally Extrem General: no clubbing, cyanosis or edema Psych Affect: normal affect Assessment AND Plan Problems 1. Rectal bleeding K62.5 Plan 42-year-old gentleman with intermittent rectal bleeding. Intermittent change of bowel habits with constipation now requiring MiraLAX. Sometimes incomplete evacuation. Possibility of anterior anal fissure. I recommend to him a daily fiber supplement. I have discussed options in that regard and he has been provided written information. We will recommend a hydrocortisone suppository as well as diltiazem cream. I am recommending a colonoscopy with possible biopsy or polypectomy is indicated. He is aware of the technique, benefits, risks, alternatives. Pending the results of the flexible colonoscopy and the suppositories and diltiazem can then entertain whether more aggressive approach is undertaken. I have discussed with the patient consideration for an examination under anesthesia with anal fissurectomy with or without dilatation. We compared and contrasted that with anal fissurectomy with lateral internal sphincterotomy. He is aware of the risk of incontinence with that particular procedure. At this point he is interested in pursuing treatment with the diltiazem suppositories and colonoscopy. We can then make further recommendations as indicated. I very much appreciate the kind opportunity of assisting with his surgical care CC: Dr. Tami Gonzalez M.D., F.A.C.S. Orders Orders: Coding Level of Care Code Detailed, Low Diagnoses Rectal bleeding K62.5 04/23/18 1641 <Electronically signed by Jorge Gonzalez MD> Date Jorge Gonzalez MD Cosigner Signature: Date (if applicable) CC: Tami Aguayo MD OBSOLETE Observed: 11/01/2017 Status: COMPLETED Source: [place] 12:00 AM CLINIC OTHER CAMPUS REPOSITORY Refill (AGENDOG) MANUEL STYLES ([id number]) 1975 [facility] Date Time Provider Department 11/01/17 SHARON DELEON During your visit today, we recorded the following information about you: Tanisha Jones 11/01/2017 1:46 PM Signed Last Visit date: 04/27/17 Future appointment: 05/03/18 Tanisha Jones Allergies As of Date: 11/01/2017 (No Known Allergies) Date Reviewed: 04/28/2017 Reviewed by: Sharon Deleon - Fully Assessed Reason for Visit: Refill Request [94] Order(s):insulin needles, DISPOSABLE, (PEN NEEDLE) 31 gauge x 5/16 ndle1 Each four times daily.Disp: 400 EachRfl: 1 Prescriptions as of 11/01/2017 Sig: PEN NEEDLE, DIABETIC 31 GAUGE* 1 Each four times daily. INSULIN DEGLUDEC (U-200) 200 * Inject 38 Units subcutaneousl* ONETOUCH ULTRA TEST STRIPS TEST 6-8 TIMES DAILY INSULIN ASPART U-100 100 UNI* Inject 20 Units subcutaneousl* FLASH GLUCOSE SENSOR KIT Change every 10 days FLASH GLUCOSE SCANNING READER 1 Each continuous. QUINAPRIL 10 MG TABLET Take 1 tablet by mouth once d* SERTRALINE 50 MG TABLET Take 1 tablet by mouth once d* DICLOFENAC POTASSIUM 50 MG TA* Take 50 mg by mouth twice jj* CALCIPOTRIENE 0.005 % TOPICAL* once daily. MULTIVITAMIN CAPSULE Take 1 capsule by mouth once * ASCORBIC ACID (VITAMIN C) 500* Take 500 mg by mouth once jj* CHOLECALCIFEROL (VITAMIN D3) * Take 1 tablet by mouth once d* Problem List As Of Date 11/01/2017 Noted Resolved Skin lesion [L98.9] INVALID FOR* Diabetes mellitus type 1, controlled, without c*INVALID FOR*04/28/2017 Constitutional obesity [E66.8] INVALID FOR* Lipoma of neck [D17.0] INVALID FOR* Type 1 diabetes mellitus with diabetic retinopa* Autoimmune lymphocytic chronic thyroiditis [E06* Insulin long-term use (HCC) [Z79.4] Obesity (BMI 30-39.9) [E66.9] Diabetes mellitus type I, controlled (HCC) [E10* Prescriptions ordered this encounter Disp Refills Start End PEN NEEDLE, DIABETIC 31 GAUGE X / 400 * 1 11/01/2017 Route: Misc Si Each four times daily. Encounter Status:Closed by SHARON DELEON MD on 11/01/17 ALLERGIES ALLERGIES DATE TYPE / CODE NAME / CODE REACTION SEVERITY SOURCE 04/23/2018 Drug No Known Unknown [facility] Allergy/416 Allergies/X80144 Hospital 506349(SNOM 0388(RXNORM) Repository ED CT) Drug NO KNOWN [facility] Class/74330 ALLERGIES Other [place] 1003(SNOMED Repository CT) NG/[id number] NO KNOWN [facility] 6(SNOMED ALLERGIES Health [facility] CT) Repository ENCOUNTERS ENCOUNTERS ADMIT/DISCHARGE ACCOUNT NUMBER ADMITTING ENCOUNTER LOCATION SOURCE CLASS 05/07/2018/05/07/20 [id number] Ambulatory BMSBuilding: [place] 18 BMS.CF.WSA [facility] Hospital Repository 05/07/2018/05/07/20 [id number] Ambulatory [facility] [address] ding:ENRoom: Repository AC10 05/03/2018 [id number] Ambulatory [facility] Other [place] Repository 05/03/2018/05/03/20 [id number] Ambulatory [address] MEDICAL Repository CENTERBuildi ng:AKLBG 05/03/2018/05/03/20 [id number] Ambulatory [address] Other [place] Repository 05/03/2018/05/03/20 [id number] Ambulatory [address] MEDICAL Repository CENTERBuildi ng:AGENDOG 04/30/2018 [id number] Ambulatory [facility] MEDICAL Repository CENTERBuildi ng:AGENDOG 04/23/2018/04/23/20 [id number] Ambulatory BMSBuilding: [address] Repository PAYERS PAYERS ENCOUNTER GUARANTOR PAYER SUBSCRIBER SOURCE 05/07/2018 MANUEL STYLES3620 Primary MANUEL Nerissa STYLESDOB: [place] AMEZCUA DAISHABOY, Insurance:ANTHEMPolic [id number] Critical access hospital 98[address]Vvu: y Number: [facility] [id number] Repository (HP) Date:[id number] [address] [place] [address] 26468WL: 05/07/2018 Secondary NOT GIVENUNK [place] Insurance:SELF PAY [facility] Number: Effective Repository Date:2018-05-07 05/07/2018 MANUEL Multani [id number] Primary MANUEL Nerissa ALLENB: [place] AMEZCUA SAEIDOOMINH, Insurance:ANTHEMPolic [id number] [address]Jpr: y Number: [facility] [id number] Repository (HP) Date:[id number] [place] [address] [id number]: 05/07/2018 Secondary NOT GIVENUNK [facility] Insurance:SELF PAY [facility] Number: Effective Repository Date:2018-04-24 05/03/2018 MANUEL ALLENB: Primary MANUEL ALLENB: [facility] [id number] Insurance:BLUE CARD [id number] Number: Repository [place] [address]Nvq: [id number] Date: (HP) 05/03/2018 MANUEL ALLENB: Primary MANUEL Nerissa ALLENB: [facility] Insurance:[employer] [id number][facility] Number: Repository [place] [address]Jfr: [id number] Date: (HP) 04/30/2018 MANUEL ALLENB: Primary MANUEL ALLENB: [facility] Insurance:[employer] [id number]. [facility]ius Medical [facility] Number: Repository [place] [address]Ldc: [id number] Date: (HP) 04/23/2018 MANUEL STYLES3620 Primary MANUEL ALLENB: [facility], Insurance:ANTHEMPolic [id number] [place] [address]Ddu: y Number: [facility] [id number] Repository (HP) Date:[id number] [address]OC: 04/23/2018 Secondary NOT GIVENUNK [facility] Insurance:SELF PAY [facility]: Effective Repository Date:2018-04-17
== END 2018-05-07 12:19 | disposition home or self-care (01) ==
LOC: EN 05:14 → AC 05:21
PROVIDERS: Family Provider Family Medicine; PCP Family Medicine; Referring Provider Family Medicine; Visit Provider Surgery
PROC: 0DJD8ZZ Inspection of Lower Intestinal Tract, Via Natural or Artificial Opening Endoscopic (ICD-10-PCS; CPT 45378; principal; 2018-05-07 06:25)
DX: D12.4 Benign neoplasm of descending colon (principal); K62.5 Hemorrhage of anus and rectum; F41.9 Anxiety disorder, unspecified; D12.3 Benign neoplasm of transverse colon; K62.1 Rectal polyp; E10.9 Type 1 diabetes mellitus without complications
CPT/HCPCS: 45385; 82962; 88305; 99152; 99153; J7120

== ENCOUNTER → 2018-07-10 18:15 | Outpatient (CLI) | payer BC, SELFPAY ==
[2018-05-07 05:45] VITALS: BMI 34.1
== END ==
PROVIDERS: Family Provider Family Medicine; PCP Family Medicine; Referring Provider Family Medicine; Visit Provider Family Medicine
DX: R39.9 Unspecified symptoms and signs involving the genitourinary system (principal)
CPT/HCPCS: 87077; 87086; 87088

== ENCOUNTER → 2018-12-24 11:48 | Outpatient (CLI) | payer BC, SELFPAY ==
[2018-05-07 05:45] VITALS: BMI 34.1
--- NOTE | 2018-12-24 11:57 | US_ITS ---
STUDY: SCROTUM ULTRASOUND REASON FOR EXAM: Male, 43 years old. Left testicle pain for several months TECHNIQUE: Ultrasound evaluation of the scrotum was performed with color Doppler and static grubbs-scale imaging. COMPARISON: 10/25/2006 FINDINGS: RIGHT TESTICLE INTRATESTICULAR: There is a normal size of the right testicle. The right testicle measures 3.9 x 2.5 x 2.0 cm. There is a homogenous echotexture. There is normal arterial and normal venous vascularity. There is no demonstrated right testicular mass or cyst. EXTRATESTICULAR: The epididymis is normal in size. The epididymis head measures 1.1 x 1.0 x 0.7 cm. There is normal vascularity of the epididymis. 2 x 2 mm epididymis head cyst. There is a small hydrocele. There is no demonstrated varicocele. There is no demonstrated extratesticular mass or cyst. LEFT TESTICLE INTRATESTICULAR: There is a normal size of the left testicle. The left testicle measures 3.6 x 2.6 x 1.6 cm. There is a homogenous echotexture. There is normal arterial and normal venous vascularity. There is no demonstrated left testicular mass or cyst. EXTRATESTICULAR: The epididymis is normal in size. The epididymis head measures 1.1 x 0.8 x 0.8 cm. There is normal vascularity of the epididymis. There is no demonstrated epididymal cystic structure. There is a small hydrocele. There are prominent extratesticular veins consistent with a varicocele. There is no demonstrated extratesticular mass or cyst. US/Testicular with Arterial Flow IMPRESSION: No evidence of intratesticular pathology. Small epididymis cyst on the right. Small bilateral hydroceles. Left-sided varicocele. Electronically Signed: Flip Banda MD at 17:25 EDT Tel , Service support ,
== END ==
PROVIDERS: Family Provider Family Medicine; PCP Family Medicine; Referring Provider Family Medicine; Visit Provider Family Medicine
DX: N50.812 Left testicular pain (principal)
CPT/HCPCS: 76870; 93976

== ENCOUNTER → 2019-02-23 08:25 | Outpatient (CLI) | payer BC, SELFPAY ==
[2018-05-07 05:45] VITALS: BMI 34.1
[2019-02-23 09:57] LABS: Cholesterol 174 mg/dL (200); High Density Lipoprotein 46 mg/dL; Triglycerides 114 mg/dL; Very Low Density Lipoprotein 23 mg/dL (5-40)
== END ==
PROVIDERS: Family Provider Family Medicine; PCP Family Medicine; Referring Provider Family Medicine; Visit Provider Family Medicine
DX: Z00.00 Encounter for general adult medical examination without abnormal findings (principal)
CPT/HCPCS: 36415; 80061

== ENCOUNTER → 2019-04-09 15:58 | Outpatient (CLI) | payer BC, SELFPAY ==
[2018-05-07 05:45] VITALS: BMI 34.1
[2019-04-09 17:34] LABS: Absolute Lymphocyte Count 1.68 X10^3/uL (0.83-4.51); Absolute Neutrophil Count 4.1 X10^3/uL (2.0-7.7); Basophil# 0.03 X10^3/uL; Basophil% 0.5 % (0-1); Eosinophils% 1.6 % (0-5); Hematocrit 49.1 % (40-54); Hemoglobin 16.1 g/dL (13.0-16.5); Lymphocyte # 1.68 X10^3/ul (4.0); Lymphocyte % 26.1 % (19-41); Mean Corp Hgb Conc 32.8 g/dL (32-36); Mean Corpuscular Hgb 30.3 pg (27.0-32.0); Mean Corpuscular Volume 92.5 fL (80-94); Mean Platelet Vol. 10.3 fl (6.2-12.0); Monocyte# 0.53 X10^3/uL; Monocyte% 8.2 % (0-10); NRBC Flagged by Analyzer 0 % (0-5); Neutrophil # 4.08 X10^3/uL (2.7-7.7); Neutrophil % 63.3 % (47-70); Platelet Count 338 K/mm3 (150-450); RBC Distribution Width CV 12.7 % (11.6-14.6); RBC Distribution Width SD 43.5 fl (35.1-43.9); Red Blood Count 5.31 M/mm3 (4.6-6.2); White Blood Count 6.4 K/mm3 (4.4-11.0)
[2019-04-09 17:45] LABS: D-Dimer Quantitative (DVT/PE) < 0.27 FEU/ug/m (0.27-0.49)
[2019-04-09 17:53] LABS: ALB/GLOB Ratio 1.1 RATIO (0.9-2.4); AST(SGOT) 22 U/L (15-37); Alanine Aminotransfer ALT/SGPT 55 U/L (16-61); Albumin, Serum 3.9 g/dL (3.2-5.0); Alkaline Phosphatase 81 U/L (45-117); Anion Gap 7 (5-15); BUN 13 mg/dL (7-18); BUN/Creat Ratio 11.8 RATIO (10-20); Calcium,Total 9.2 mg/dL (8.5-10.1); Chloride 107 mmol/L (98-107); Cholesterol 189 mg/dL (200); EST Glomerular Filtration Rate 77 mL/min (>60); Est Glom Filt Rate - Afr Amer 93 mL/min (>60); Globulin 3.5 g/dL (2.2-4.2); Glucose 120 mg/dL (74-106); High Density Lipoprotein 56 mg/dL; Potassium 3.6 mmol/L (3.5-5.1); Protein, Total 7.4 g/dL (6.4-8.2); Sodium Level 141 mmol/L (136-145); Triglycerides 147 mg/dL; Very Low Density Lipoprotein 29 mg/dL (5-40)
== END ==
PROVIDERS: Family Provider Family Medicine; PCP Family Medicine; Visit Provider Family Medicine
DX: R07.9 Chest pain, unspecified (principal)
CPT/HCPCS: 36415; 80053; 80061; 85025; 85379

== ENCOUNTER → 2019-04-16 05:45 | Outpatient (CLI) | payer BC, SELFPAY ==
[2018-05-07 05:45] VITALS: BMI 34.1
--- NOTE | 2019-04-16 12:50 | STRESSREP_ITS ---
Stress Test Report Exercise myocardial perfusion stress test. 43-year-old man with a history of chest pain. Stress protocol: Resting EKG demonstrates normal sinus rhythm with a rate of 60 bpm normal intervals are noted resting blood pressure 144/82 mmHg. The patient exercised according to regular [place] protocol for total duration of 10 minutes patient co mpleted 1 minute into stage IV of the [place] protocol. The maximum heart rate attained was 179 bpm which was 102% of maximum predicted heart rate the maximum workload was 11.6 metabolic equivalents. The patient maintained sinus rhythm throughout the recording. At rest there were no ST or T wave changes noted suggest ischemia at peak exercise mild T wave inversions were noted in lead III upsloping ST changes were noted. The test was terminated due to target heart rate being achieved the resting blood pressures 144/82 with a peak blood pressure 164/78. Myocardial perfusion protocol. 15.0 mCi of technetium 99m sestamibi was injected at rest. The patient exercised according to regular [place] protocol for 10 minutes attaining 11.6 metabolic equivalents at peak exercise 45.0 mCi of technetium 99m sestamibi was injected stress images were obtained stress and rest images were reconstructed and compared in the short axis vertical long horizontal long axis. Gated images were also obtained Perfusion SPECT analysis: Review of the stress images demonstrate normal uptake of tracer noted in all rest myocardium the resting images similar demonstrate normal uptake of tracer noted in all areas of myocardium. No areas of reversibility are noted suggest ischemia no previous infarct is noted. Gated SPECT analysis: The gated ejection fraction is noted to be 56%. Conclusion: Normal exercise myocardial perfusion stress test at a high workload. Preserved ejection fraction.
== END ==
PROVIDERS: Family Provider Family Medicine; PCP Family Medicine; Referring Provider Family Medicine; Visit Provider Family Medicine
DX: R07.9 Chest pain, unspecified (principal)
CPT/HCPCS: 78452; 93017; A9500; A4216

== ENCOUNTER → 2019-05-06 16:19 | Outpatient (CLI) | payer BC, SELFPAY ==
[2019-05-06 15:27] VITALS: BMI 34.1
[2019-05-06 17:43] LABS: Microalbumin,Random Urine < 5.0 mg/L (NO RANGE EST.)
[2019-05-06 17:53] LABS: ALB/GLOB Ratio 1.1 RATIO (0.9-2.4); AST(SGOT) 33 U/L (15-37); Alanine Aminotransfer ALT/SGPT 47 U/L (16-61); Albumin, Serum 4.2 g/dL (3.2-5.0); Alkaline Phosphatase 79 U/L (45-117); Anion Gap 8 (5-15); BUN 9 mg/dL (7-18); BUN/Creat Ratio 9.5 RATIO (10-20); Calcium,Total 9.5 mg/dL (8.5-10.1); Chloride 103 mmol/L (98-107); Cholesterol 195 mg/dL (200); Creatinine, Serum 0.95 mg/dL (0.70-1.30); EST Glomerular Filtration Rate 91 mL/min (>60); Est Glom Filt Rate - Afr Amer 110 mL/min (>60); Globulin 3.7 g/dL (2.2-4.2); Glucose 56 mg/dL (74-106); High Density Lipoprotein 66 mg/dL; PSA,Total- Diagnostic 0.63 ng/mL (0.0-4.0); Potassium 3.6 mmol/L (3.5-5.1); Protein, Total 7.9 g/dL (6.4-8.2); Sodium Level 140 mmol/L (136-145); T4 Free Direct 0.82 ng/dL (0.76-1.46); Thyroid Stim Hormone (TSH) 1.48 uIU/mL (0.358-3.74); Triglycerides 139 mg/dL; Very Low Density Lipoprotein 28 mg/dL (5-40)
== END ==
PROVIDERS: Family Provider Family Medicine; PCP Family Medicine; Referring Provider Internal Medicine Endocrinology, Diabetes & Metabolism; Visit Provider Internal Medicine Endocrinology, Diabetes & Metabolism
DX: E10.9 Type 1 diabetes mellitus without complications (principal)
CPT/HCPCS: 36415; 80053; 80061; 82043; 82570; 84153; 84439; 84443

== ENCOUNTER → 2020-05-05 16:36 | Outpatient (CLI) | payer BC, SELFPAY ==
[2020-05-05 15:55] VITALS: BMI 35.2
[2020-05-05 18:11] LABS: Microalbumin,Random Urine 6.8 mg/L (NO RANGE EST.)
[2020-05-05 18:17] LABS: Vitamin B12 510 pg/mL (211-911)
[2020-05-05 18:33] LABS: ALB/GLOB Ratio 1.1 RATIO (0.9-2.4); AST(SGOT) 26 U/L (15-37); Alanine Aminotransfer ALT/SGPT 56 U/L (16-61); Albumin, Serum 3.9 g/dL (3.2-5.0); Alkaline Phosphatase 71 U/L (45-117); Anion Gap 5 (5-15); BUN 16 mg/dL (7-18); BUN/Creat Ratio 17.6 RATIO (10-20); Chloride 103 mmol/L (98-107); Cholesterol 180 mg/dL (200); Creatinine, Serum 0.91 mg/dL (0.70-1.30); EST Glomerular Filtration Rate 96 mL/min (>60); Est Glom Filt Rate - Afr Amer 116 mL/min (>60); Globulin 3.4 g/dL (2.2-4.2); Glucose 108 mg/dL (74-106); High Density Lipoprotein 54 mg/dL; PSA,Total - Annual Screen 0.58 ng/mL (0.00-4.00); Potassium 3.6 mmol/L (3.5-5.1); Protein, Total 7.3 g/dL (6.4-8.2); Sodium Level 138 mmol/L (136-145); Thyroid Stim Hormone (TSH) 2.03 uIU/mL (0.358-3.74); Triglycerides 101 mg/dL; Very Low Density Lipoprotein 20 mg/dL (5-40)
== END ==
PROVIDERS: PCP Family Medicine; Referring Provider Internal Medicine Endocrinology, Diabetes & Metabolism; Visit Provider Internal Medicine Endocrinology, Diabetes & Metabolism
DX: E11.9 Type 2 diabetes mellitus without complications (principal); R20.2 Paresthesia of skin; M79.601 Pain in right arm; M79.602 Pain in left arm
CPT/HCPCS: 36415; 80053; 80061; 82043; 82570; 82607; 84153; 84443; G0103

== ENCOUNTER 2021-01-21 22:14 | Emergency (ER) | payer BC, SELFPAY ==
[2021-01-21 22:14] VITALS: BP 138/83; PULSE 105; RESP 16; TEMP 36.7; O2SAT 99
[2021-01-21 22:18] VITALS: BP 138/83; PULSE 105; RESP 16; TEMP 36.7; O2SAT 99
[2021-01-21 22:39] VITALS: O2SAT 95
--- NOTE | 2021-01-21 22:40 | RAD_ITS ---
EXAM: XR CHEST, 1 VIEW : 1975 CLINICAL INDICATION: SOB TECHNIQUE: Frontal view of the chest. This report was created using [employer] report generation technology. COMPARISON: None. FINDINGS: LUNGS AND PLEURAL SPACES: Unremarkable. No consolidation or edema. No pneumothorax. No effusion. HEART: Unremarkable. Cardiac silhouette not enlarged. MEDIASTINUM: Central airways and mediastinal contour are unremarkable. BONES/JOINTS: Unremarkable. SOFT TISSUES: Unremarkable. RAD/Chest 1 View (Portable) IMPRESSION: No radiographic evidence of acute cardiopulmonary disease. at 2315 Reported and signed by: Thomas Schultz MD Electronically Signed: Thomas Schultz MD at 23:14 EDT Tel , Service support ,
--- NOTE | 2021-01-21 23:38 | EX.ED.DYSGE1 ---
HPI History of Present Illness Chief Complaint: Shortness of Breath Informant: patient Narrative Narrative: Patient started to get a mild sore throat on Monday afternoon. It then progressed to some nasal congestion. The sore throat improved but the congestion got a bit more. He did take tuwy-kev-wapacum decongestant which helped. This evening after shower he just felt more malaise and muscle aches. He took a home Covid test that was positive. He was immunized with his second dose in July. He is not short of breath. He has a rare cough. No nausea or vomiting. Nothing really makes his symptoms worse. Gkpt-dxn-svwixou meds did help. He does believe he had a slight fever at home but went down with medication. [facility] Medical History Diabetes type 1, controlled Hemorrhoids Psoriasis Rectal bleeding Rectal fissure Home Medications ascorbic acid (vitamin C) 500 mg capsule 500 mg PO DAILY cap 04/23/18 [History Last Taken Unknown] calcipotriene 0.005 % topical ointment 1 applic TOPICAL DAILY 04/23/18 [History Last Taken Unknown] clocortolone pivalate 0.1 % topical cream 1 applic TOPICAL TID 04/23/18 [History Last Taken Unknown] diclofenac potassium 50 mg tablet 50 mg PO BID 04/23/18 [History Last Taken Unknown] multivitamin,vl-mfeh-fohqpofo 1 tab PO DAILY 04/23/18 [History Last Taken Unknown] zinc 50 mg tablet 50 mg PO DAILY 04/23/18 [History Last Taken Unknown] cholecalciferol (vitamin D3) 5,000 unit PO DAILY 05/07/18 [History Last Taken Unknown] insulin aspart U-100 100 unit/mL (3 mL) subcutaneous pen 20 unit SC TID #60 ml 05/05/20 [Rx Last Taken Unknown] insulin degludec 100 unit/mL (3 mL) subcutaneous pen 40 unit SC QHS #45 ml 05/05/20 [Rx Last Taken Unknown] pen needle, diabetic 33 gauge x 10/04 #400 ea 05/05/20 [Rx Last Taken Unknown] quinapril 10 mg tablet 10 mg PO DAILY #90 tab 05/05/20 [Rx Last Taken Unknown] blood sugar diagnostic #800 ea 06/11/20 [Rx Last Taken Unknown] citalopram 20 mg tablet 20 mg PO DAILY #90 tab 12/16/20 [Rx Last Taken Unknown] Diltiazem 2% / Lidocaine 5% ointment (compound) #30 ea 12/18/20 [Rx Last Taken Unknown] Hydrocortisone 2.5%/lidocaine 5% suppository (cmpd) #1 ea 12/18/20 [Rx Last Taken Unknown] metronidazole 500 mg tablet 500 mg PO TID #21 tab 12/18/20 [Rx Last Taken Unknown] Allergy/AdvReac Type Severity Reaction Status Date / Time No Known Allergies Allergy Verified 01/21/21 22:18 Family History Father Cancer prostate Mother Cancer uterine Surgical History History of appendectomy History of lateral meniscus repair of left knee Social History Smoking Status: Never smoker ROS ROS ED Constitutional Constitutional ED: Reports fever(s) and subjective; Denies weight loss Eyes Eyes: Denies change in vision ENT ENT ED: Reports rhinorrhea and sore throat; Denies ear pain Cardiovascular Cardiovascular: Denies chest pain or palpitations Respiratory/Chest Respiratory/Chest: Reports cough; Denies dyspnea, dyspnea on exertion or sputum Gastrointestinal Gastrointestinal: Denies diarrhea, nausea or vomiting Musculoskeletal Musculoskeletal: Reports myalgias Integumentary Denies rash Neurologic Neurologic: Denies headache(s), paresthesias or weakness Endocrine Endocrinology: Denies polydipsia or polyuria Allergic/Immunologic Allergic/Immunologic ED: Denies urticaria EXAM Physical Exam Const Vital Signs: 01/21/21 22:14 01/21/21 22:18 01/21/21 22:39 Temperature 98.0 F 98.0 F Temperature Source Temporal Temporal Pulse Rate 105 H 105 H Respiratory Rate 16 16 Respiratory Effort Normal Non-Labored Respiratory Depth Normal Respiratory Pattern Normal Blood Pressure 138/83 H 138/83 H Blood Pressure Mean 101 101 Pulse Ox 99 99 Oxygen Delivery Method Room Air Room Air Room Air Positive well nourished and well developed Constitutional Narrative: Patient looks comfortable I walk in the room. He is nontoxic in appearance. Breathing is easy and unlabored. General Appearance ED: well developed and NAD HEENT Negative for trauma Eyes EOMs intact bilaterally Chest Wall inspection of chest normal Resp normal respiratory effort and clear to auscultation bilaterally Effort and Inspection: Negative for pain with movement Auscultation: Negative for rales, rhonchi or wheezes Cardio regular rate and regular rhythm GI normal to inspection, nondistended, normoactive bowel sounds and non-tender Palpation: soft Back/Spine no CVA tenderness Extremity normal to inspection General Extremety ED: Negative for edema General Extremity: Negative for edema Neuro Sensorium / Orientation: alert Psych mental status grossly normal Skin no rashes or lesions noted MDM MDM MDM Narrative Medical decision making narrative: Patient's chest x-ray shows no acute process. His Covid is positive consistent with his history. He does not have a need for Decadron. Lungs are clear. No history of asthma. Patient does have type 1 diabetes. He will be referred for monoclonal therapy consideration. We discussed reasons to return. Radiography Diagnostic Testing: Radiology Impression Chest X-Ray 01/21/21 22:40 IMPRESSION: No radiographic evidence of acute cardiopulmonary disease. at 2315 Reported and signed by: Thomas Schultz MD Electronically Signed: Thomas Schultz MD at 23:14 EDT Tel , Service support , Discharge Plan Triage Chief Complaint: Shortness of Breath ED Provider: Andrés Daugherty Dx/Rx/DC Orders Clinical Impression: COVID-19 Instructions: Coronavirus Disease 2019 (COVID-19): Overview Prescriptions: No Action diclofenac potassium 50 mg tablet 50 mg PO BID RF: 0 multivitamin,am-atpq-xhavkwiq tablet tablet 1 tab PO DAILY RF: 0 zinc 50 mg tablet 50 mg PO DAILY RF: 0 ascorbic acid (vitamin C) 500 mg capsule 500 mg PO DAILY RF: 0 clocortolone pivalate [Cloderm] 0.1 % cream 1 applic TOPICAL TID RF: 0 calcipotriene 0.005 % topical ointment 0.005 % ointment 1 applic TOPICAL DAILY RF: 0 quinapril [Accupril] 10 mg tablet 10 mg PO DAILY Qty: 90 RF: 3 (DME) Comfort EZ Pen [place] 33 gauge x 5/16 needle See Rx Instructions .ROUTE .MEDSUPPLY Qty: 400 RF: 3 Tresiba FlexTouch U-100 100 unit/mL (3 mL) insulin pen 40 unit SC QHS Qty: 45 RF: 3 Novolog Flexpen U-100 Insulin 100 unit/mL (3 mL) insulin pen 20 unit SC TID Qty: 60 RF: 3 metronidazole 500 mg tablet 500 mg PO TID Qty: 21 RF: 0 (DME) hydrocortisone 2.5%/lidocaine 5% suppository (compound) Suppository See Rx Instructions .ROUTE .MEDSUPPLY Qty: 1 RF: 0 (DME) Diltiazem 2% / Lidocaine 5% ointment (compound) Ointment See Rx Instructions .ROUTE .MEDSUPPLY Qty: 30 RF: 0 cholecalciferol (vitamin D3) 5,000 UNIT capsule 5,000 unit PO DAILY RF: 0 (DME) Accu-Chek SmartView Test Strip Strip See Rx Instructions .ROUTE .MEDSUPPLY Qty: 800 RF: 3 citalopram 20 mg tablet 20 mg PO DAILY Qty: 90 RF: 0 Other Ambulatory Orders: COVID Outpatient Monoclonal Antibody Referral (Routine) Location: None Selected Ordered By: Dr. Andrés Daugherty Primary Care Provider: Tami Aguayo Referrals: Tami Aguayo MD [Primary Care Provider] - As Needed Disposition Disposition: Home, Self Care
[2021-01-22 00:01] LABS: Bedside Glucose 198 mg/dL (70-110)
== END 2021-01-21 23:59 | disposition home or self-care (01) ==
PROVIDERS: Emergency Provider Emergency Medicine; PCP Family Medicine
DX: U07.1 COVID-19 (principal); E10.9 Type 1 diabetes mellitus without complications
CPT/HCPCS: 71045; 82962; 87426; 99282

== ENCOUNTER 2021-01-25 13:27 | Outpatient (CLI) | payer BC, SELFPAY ==
[2021-01-25] MEDS: 0.9% Saline Lock 10 ML Syringe IV (13:43)
[2021-01-25 13:45] VITALS: BP 138/98; PULSE 103; RESP 14; TEMP 36.9; O2SAT 100; BMI 29.4
[2021-01-25 14:15] VITALS: BP 136/92; PULSE 86; RESP 16; TEMP 37.1; O2SAT 100
[2021-01-25 15:06] VITALS: BP 135/90; PULSE 93; RESP 16; TEMP 36.9; O2SAT 99
== END 2021-01-25 15:15 | disposition home or self-care (01) ==
LOC: ICUOUT 13:29 → MS2 13:30
PROVIDERS: PCP Family Medicine; Referring Provider Nurse Practitioner Acute Care; Visit Provider Nurse Practitioner Acute Care
DX: Z23 Encounter for immunization (principal); U07.1 COVID-19
CPT/HCPCS: J7050; M0243; A4216; Q0244

== ENCOUNTER → 2021-04-20 12:07 | Outpatient (CLI) | payer BC, SELFPAY ==
[2021-04-20 15:30] LABS: Vitamin D,25 Hydroxy 55.9 ng/mL
[2021-04-20 15:36] LABS: Microalbumin,Random Urine < 5.0 mg/L (NO RANGE EST.)
[2021-04-20 15:40] LABS: AST(SGOT) 32 U/L (15-37); Alanine Aminotransfer ALT/SGPT 56 U/L (16-61); Albumin, Serum 3.6 g/dL (3.2-5.0); Alkaline Phosphatase 68 U/L (45-117); Anion Gap 7 (5-15); BUN 15 mg/dL (7-18); BUN/Creat Ratio 15.8 RATIO (10-20); Calcium,Total 9.8 mg/dL (8.5-10.1); Chloride 103 mmol/L (98-107); Cholesterol 194 mg/dL (200); Creatinine, Serum 0.95 mg/dL (0.70-1.30); EST Glomerular Filtration Rate 90 mL/min (>60); Est Glom Filt Rate - Afr Amer 109 mL/min (>60); Globulin 3.6 g/dL (2.2-4.2); Glucose 85 mg/dL (74-106); High Density Lipoprotein 74 mg/dL; Protein, Total 7.2 g/dL (6.4-8.2); Sodium Level 138 mmol/L (136-145); Thyroid Stim Hormone (TSH) 1.92 uIU/mL (0.358-3.74); Triglycerides 83 mg/dL; Very Low Density Lipoprotein 17 mg/dL (5-40)
== END ==
PROVIDERS: PCP Family Medicine; Referring Provider Internal Medicine Endocrinology, Diabetes & Metabolism; Visit Provider Internal Medicine Endocrinology, Diabetes & Metabolism
DX: E10.9 Type 1 diabetes mellitus without complications (principal); E55.9 Vitamin D deficiency, unspecified
CPT/HCPCS: 36415; 80053; 80061; 82043; 82306; 82570; 84443

== ENCOUNTER 2021-05-17 05:17 | Day surgery (SDC) | payer BC, SELFPAY ==
[2021-05-17 06:19] VITALS: BP 135/81; PULSE 69; RESP 16; TEMP 36.8; O2SAT 100; BMI 28.8
[2021-05-17] MEDS: Lactated Ringers 1,000 ML 30 ML IV (06:25)
--- NOTE | 2021-05-17 06:30 | COLBX_PTH ---
PATIENT: MANUEL PEREA LOC: EN U#:[id number] AGE/SX: 45/M ROOM: RE05/17/[address]: Dr. Chi López DO : 1975 BED: DIS: 05/17/2021 SPEC #: [id number] RECD: 05/17/21 10:42 STATUS: KEVIN RENikia #: [id number] CORRINE: 05/17/21 06:[address]: Chi López DEPT: SURGICAL PATHOLOGY RECD BY: Laurel Zavala ENTERED: 05/17/21 11:22 SP TYPE: COLON BX OTHR DR: Dr. Tami Augayo MD Tissues: Cecum, NOS Procedures: Surgery Specimen Level IV HEADER OPERATION: Colonoscopy ? open access (MAC) PRE-OP DIAGNOSIS: Screening TISSUE SUBMITTED: Biopsy of cecum polyp MICROSCOPIC DIAGNOSIS Cecum polyp, biopsy: Fragments of tubular adenoma. SJ:stu 05/18/2021 MICROSCOPIC DESCRIPTION Slides are reviewed. GROSS DESCRIPTION Received in fixative is one container labeled with the patient's name and designated biopsy of cecum polyp. The specimen consists of multiple irregular fragments of light rivera soft tissue that in aggregate measure 1 x 0.8 x 0.1 cm. The specimen is totally submitted in one cassette. / SJ:stu 05/17/21 TC:1 CPT: 55079
--- NOTE | 2021-05-17 06:42 | HP.PCM_ITS ---
History and Physical Date of Admission: 05/17/21 [facility] Medical History Diabetes type 1, controlled Family history of prostate cancer Hemorrhoids Psoriasis Rectal bleeding Rectal fissure Surgical History History of appendectomy History of lateral meniscus repair of left knee Family History Father Cancer prostate Mother Cancer uterine Social History Smoking Status: Never smoker HPI 45 yo gentleman arrives here for screening colonoscopy. He is not having any problems with his bowels. He does have a history of rectal fissure. But no previous history of colon cancer or colon problems. He is not have any abdominal pain. He denies any chest pain or shortness of breath. Exam Const General: cooperative, healthy appearing, comfortable, no acute distress, Nutritional Appearance: well nourished Orientation: alert, awake and oriented x3 HENMT Head: normal to inspection Ears: hearing grossly normal bilaterally Nose: external nose normal Mouth: oral mucosae normal Eyes General: appearance normal, both eyes and all related structures Alignment and Position: alignment normal Periorbital: periorbital findings normal Eyelids: eyelids normal Conjunctivae: conjunctivae normal Neck Neck: normal visual inspection Neck mass: No Thyroid: thyroid normal Carotids: no bruits Lymphatic: no lymphadenopathy noted Chest Chest palpation & inspection: normal inspection of the chest Resp Effort & Inspection: normal respiratory effort, able to speak in complete sentences, symmetric chest movement, no audible wheezes and no cough Auscultation: Bilateral: Clear to Auscultation Cardio Rate: regular rate Rhythm: regular rhythm GI Inspection: normal to inspection Auscultation: normal bowel sounds Palpation: soft and no hepatosplenomegaly Skin General: no rashes or lesions noted Neuro General: patient alert, patient awake and patient oriented x3 Cranial Nerves: CN's II-XI intact bilaterally Cognition: normal cognition Speech: speech normal Gait: normal gait Motor: muscle tone normal throughout Extrem General: no edema Psych Appearance: grossly normal Mental Status: mental status grossly normal Mood: congruent mood Affect: normal affect Speech and Movement: speech and movement normal Attitude: cooperative Thought Process: normal Thought Content: normal Judgment: judgment good Assessment and Plan 45-year-old gentleman will undergo undergo colonoscopy. He was explained alternatives, risk, benefits including and not withstanding bleeding, infection, sepsis, perforation, need for emergent surgery . He will have ASA of 1.
[2021-05-17 07:05] LABS: Bedside Glucose 96 mg/dL (70-110)
[2021-05-17 07:16] VITALS: BP 114/80; BP 135/81; PULSE 81; RESP 16; TEMP 36.3; O2SAT 99
--- NOTE | 2021-05-17 07:18 | OP.COLON_ITS ---
Patient Name: Jaren Styles Procedure Date: 05/17/2021 6:17 AM Date of : 1975 Age: 45 Procedure: Colonoscopy Indications: Screening for colorectal malignant neoplasm Providers: Chi López DO Medicines: See the Anesthesia note for documentation of the administered medications Patient Profile: This is a 45 year old male. Refer to note in patient chart for documentation of history and physical. Last Colonoscopy: date unknown. Complications: No immediate complications. Procedure: Pre-Anesthesia Assessment: - Prior to the procedure, a History and Physical was performed, and patient medications and allergies were reviewed. The risks and benefits of the procedure and the sedation options and risks were discussed with the patient. All questions were answered and informed consent was obtained. Patient identification and proposed procedure were verified by the physician in the pre-procedure area. Mental Status Examination: alert and oriented. Airway Examination: normal oropharyngeal airway and neck mobility. Respiratory Examination: clear to auscultation. CV Examination: normal. Prophylactic Antibiotics: The patient does not require prophylactic antibiotics. Prior Anticoagulants: The patient has taken no previous anticoagulant or antiplatelet agents. ASA Grade Assessment: II - A patient with mild systemic disease. After reviewing the risks and benefits, the patient was deemed in satisfactory condition to undergo the procedure. The anesthesia plan was to use moderate sedation / analgesia (conscious sedation). Immediately prior to administration of medications, the patient was re-assessed for adequacy to receive sedatives. The heart rate, respiratory rate, oxygen saturations, blood pressure, adequacy of pulmonary ventilation, and response to care were monitored throughout the procedure. The physical status of the patient was re-assessed after the procedure. After I obtained informed consent, the scope was passed under direct vision. Throughout the procedure, the patient's blood pressure, pulse, and oxygen saturations were monitored continuously. The Colonoscope was introduced through the anus and advanced to the cecum, identified by appendiceal orifice and ileocecal valve. The colonoscopy was performed without difficulty. The patient tolerated the procedure well. The quality of the bowel preparation was good. Moderate Sedation: Moderate (conscious) sedation was administered by the endoscopy nurse and supervised by the endoscopist. The patient's oxygen saturation, heart rate, blood pressure and response to care were monitored. Total physician intraservice time was 15 minutes. Scope In: 6:49:32 AM Scope Withdrawal Time 0 hours 16 minutes 55 seconds Scope Out: 7:12:26 AM Total Procedure Duration Time 0 hours 22 minutes 54 seconds Findings: The perianal and digital rectal examinations were normal. A 5 mm polyp was found in the cecum. The polyp was sessile. The polyp was removed with a hot snare. Resection and retrieval were complete. Verification of patient identification for the specimen was done. Estimated blood loss was minimal. The exam was otherwise without abnormality on direct and retroflexion views. Impression: - One 5 mm polyp in the cecum, removed with a hot snare. Resected and retrieved. - The examination was otherwise normal on direct and retroflexion views. Recommendation: - Discharge patient to home. - Resume previous diet. - Continue present medications. - Await pathology results. - Repeat colonoscopy in 5 years for surveillance based on pathology results. - Return to GI office PRN. Procedure Code(s): --- Professional --- 79031, Colonoscopy, flexible; with removal of tumor(s), polyp(s), or other lesion(s) by snare technique 20501, 59, Moderate sedation services provided by the same physician or other qualified health specialist wound care performing the diagnostic or therapeutic service that the sedation supports, requiring the presence of an independent trained observer to assist in the monitoring of the patient's level of consciousness and physiological status; initial 15 minutes of intraservice time, patient age 5 years or older CPT copyright 2017 [employer]. All rights reserved. The codes documented in this report are preliminary and upon projection welding machine operator review may be revised to meet current compliance requirements. Chi López DO 05/17/2021 7:17:37 AM This report has been signed electronically. Number of Addenda: 1 Note Initiated On: 05/17/2021 6:17 AM Addendum Number: 1 Addendum Date: 01/26/2022 7:22:08 AM MAC was used instead of moderate sedation for the patient. Chi López DO 01/26/2022 7:22:12 AM This report has been signed electronically.
--- NOTE | 2021-05-17 07:18 | OP.CCLET_ITS ---
01/26/2022 Tami Aguayo [address] [place] [address] Re : Colonoscopy procedure for Jaren Styles Dear Dr. Aguayo This procedure was performed on Monday, May 17, 2021. My impressions and recommendations are as follows: Impressions : - One 5 mm polyp in the cecum, removed with a hot snare. Resected and retrieved. - The examination was otherwise normal on direct and retroflexion views. Recommendations : - Discharge patient to home. - Resume previous diet. - Continue present medications. - Await pathology results. - Repeat colonoscopy in 5 years for surveillance based on pathology results. - Return to GI office PRN. My findings are described in the full procedure note, which is enclosed. If I can be of further assistance, please feel free to contact me at . Sincerely, Chi López, 05/17/2021 7:17:37 AM This report has been signed electronically.
[2021-05-17 07:20] VITALS: BP 119/81; BP 135/81; PULSE 74; RESP 16; O2SAT 99
[2021-05-17 07:25] VITALS: BP 116/79; BP 135/81; PULSE 66; RESP 16; O2SAT 99
[2021-05-17 07:31] VITALS: BP 119/82; BP 135/81; PULSE 64; RESP 16; TEMP 36.2; O2SAT 100
[2021-05-17 07:38] VITALS: BP 135/81
== END 2021-05-17 08:08 | disposition home or self-care (01) ==
LOC: EN 05:18 → AC 05:55
PROVIDERS: PCP Family Medicine; Referring Provider Family Medicine; Visit Provider Internal Medicine Gastroenterology
PROC: 0DJD8ZZ Inspection of Lower Intestinal Tract, Via Natural or Artificial Opening Endoscopic (ICD-10-PCS; CPT 45378; principal; 2021-05-17 06:25)
DX: Z12.11 Encounter for screening for malignant neoplasm of colon (principal); K63.5 Polyp of colon; E10.9 Type 1 diabetes mellitus without complications; Z80.42 Family history of malignant neoplasm of prostate; Z79.4 Long term (current) use of insulin; Z87.19 Personal history of other diseases of the digestive system; Z90.49 Acquired absence of other specified parts of digestive tract
CPT/HCPCS: 45385; 82962; 88305; J7120; J2405

== ENCOUNTER → 2022-08-02 | Outpatient (CLI) | payer OTHER, SELFPAY ==
[2022-08-02 15:33] LABS: Vitamin D,25 Hydroxy 63.8 ng/mL
[2022-08-02 15:41] LABS: ALB/GLOB Ratio 1.1 RATIO (0.9-2.4); AST(SGOT) 19 U/L (15-37); Alanine Aminotransfer ALT/SGPT 32 U/L (16-61); Albumin, Serum 3.6 g/dL (3.2-5.0); Alkaline Phosphatase 52 U/L (45-117); Anion Gap 4 (5-15); BUN 11 mg/dL (7-18); BUN/Creat Ratio 13.6 RATIO (10-20); Calcium,Total 9.1 mg/dL (8.5-10.1); Chloride 106 mmol/L (98-107); Cholesterol 173 mg/dL (200); Creatinine, Serum 0.81 mg/dL (0.70-1.30); EST Glomerular Filtration Rate 108 mL/min (>60); Est Glom Filt Rate - Afr Amer 130 mL/min (>60); Globulin 3.2 g/dL (2.2-4.2); Glucose 78 mg/dL (74-106); High Density Lipoprotein 82 mg/dL; PSA,Total - Annual Screen 0.78 ng/mL (0.00-4.00); Protein, Total 6.8 g/dL (6.4-8.2); Sodium Level 140 mmol/L (136-145); Thyroid Stim Hormone (TSH) 1.24 uIU/mL (0.358-3.74); Triglycerides 31 mg/dL; Very Low Density Lipoprotein 6 mg/dL (5-40)
[2022-08-02 15:50] LABS: Microalbumin,Random Urine 5.6 mg/L (NO RANGE EST.); Microalbumin:Creatinine Ratio 5.6 mg/g CRE (<30 mg/g CRE)
== END | disposition home or self-care (01) ==
LOC: BIMLAB 12:23
PROVIDERS: PCP Family Medicine; Referring Provider Internal Medicine Endocrinology, Diabetes & Metabolism; Visit Provider Internal Medicine Endocrinology, Diabetes & Metabolism
DX: E11.9 Type 2 diabetes mellitus without complications (principal); Z80.42 Family history of malignant neoplasm of prostate; Z12.5 Encounter for screening for malignant neoplasm of prostate; E55.9 Vitamin D deficiency, unspecified
CPT/HCPCS: 36415; 80053; 80061; 82043; 82306; 82570; 84153; 84443; G0103

== ENCOUNTER → 2023-08-01 | Outpatient (CLI) | payer OTHER, SELFPAY ==
[2023-08-01 17:39] LABS: Absolute Neutrophil Count 3.8 X10^3/uL (2.0-7.7); Basophil# 0.03 X10^3/uL; Basophil% 0.5 % (0-1); Eosinophil# 0.06 X10^3/uL; Hematocrit 43.9 % (40-54); Hemoglobin 14.9 g/dL (13.0-16.5); Lymphocyte % 24.1 % (19-41); Mean Corp Hgb Conc 33.9 g/dL (32-36); Mean Corpuscular Hgb 32.5 pg (27.0-32.0); Mean Corpuscular Volume 95.9 fL (80-94); Mean Platelet Vol. 10.6 fl (6.2-12.0); Monocyte# 0.53 X10^3/uL; Monocyte% 9.1 % (0-10); NRBC Flagged by Analyzer 0 % (0-5); Neutrophil # 3.78 X10^3/uL (2.7-7.7); Neutrophil % 65.1 % (47-70); Platelet Count 310 K/mm3 (150-450); RBC Distribution Width CV 12.8 % (11.6-14.6); RBC Distribution Width SD 45.3 fl (35.1-43.9); Red Blood Count 4.58 M/mm3 (4.6-6.2); White Blood Count 5.8 K/mm3 (4.4-11.0)
[2023-08-01 18:44] LABS: Vitamin B12 411 pg/mL (211-911); Vitamin D,25 Hydroxy 52.1 ng/mL
[2023-08-01 19:53] LABS: Microalbumin,Random Urine < 5.0 mg/L (NO RANGE EST.)
[2023-08-01 23:27] LABS: ALB/GLOB Ratio 1.2 RATIO (0.9-2.4); AST(SGOT) 23 U/L (15-37); Alanine Aminotransfer ALT/SGPT 30 U/L (16-61); Albumin, Serum 3.8 g/dL (3.2-5.0); Alkaline Phosphatase 51 U/L (45-117); Anion Gap 4 (5-15); BUN 12 mg/dL (7-18); Chloride 106 mmol/L (98-107); Cholesterol 184 mg/dL (200); Creatinine, Serum 0.92 mg/dL (0.70-1.30); EST Glomerular Filtration Rate 92 mL/min (>60); Est Glom Filt Rate - Afr Amer 112 mL/min (>60); Globulin 3.1 g/dL (2.2-4.2); Glucose 76 mg/dL (74-106); High Density Lipoprotein 73 mg/dL; Luteinizing Hormone 6.3 mIU/mL; PSA,Total - Annual Screen 0.63 ng/mL (0.00-4.00); Potassium 3.7 mmol/L (3.5-5.1); Protein, Total 6.9 g/dL (6.4-8.2); Sodium Level 139 mmol/L (136-145); T4 Free Direct 0.76 ng/dL (0.76-1.46); Thyroid Stim Hormone (TSH) 1.09 uIU/mL (0.358-3.74); Triglycerides 95 mg/dL; Very Low Density Lipoprotein 19 mg/dL (5-40)
[2023-08-07 12:08] LABS: Testosterone, Free 8.79 ng/dL (5.00-21.00); Testosterone, Total 314 ng/dL (264-916)
== END | disposition home or self-care (01) ==
LOC: LAB 15:40
PROVIDERS: PCP Family Medicine; Referring Provider Internal Medicine Endocrinology, Diabetes & Metabolism; Visit Provider Internal Medicine Endocrinology, Diabetes & Metabolism
DX: E10.9 Type 1 diabetes mellitus without complications (principal); R53.83 Other fatigue; E55.9 Vitamin D deficiency, unspecified
CPT/HCPCS: 36415; 80053; 80061; 82043; 82306; 82570; 82607; 83001; 83002; 84153; 84402; 84403; 84439; 84443; 85025; G0103

== ENCOUNTER → 2024-08-09 | Outpatient (CLI) | payer BC, SELFPAY ==
[2024-08-09 16:42] LABS: Microalbumin,Random Urine < 12.0 mg/L (NO RANGE EST.); Microalbumin:Creatinine Ratio UNABLE TO CALCULATE mg/g CRE
[2024-08-09 16:52] LABS: PSA,Total - Annual Screen 0.44 ng/mL (0.02-4.00)
[2024-08-09 16:53] LABS: ALB/GLOB Ratio 1.7 RATIO (0.9-2.4); AST(SGOT) 32 U/L (<=37); Alanine Aminotransfer ALT/SGPT 47 U/L (<=46); Albumin, Serum 4.2 g/dL (3.5-5.0); Alkaline Phosphatase 60 U/L (40-129); Anion Gap 11 (5-15); BUN 16 mg/dL (4-19); Calcium,Total 9.4 mg/dL (7.6-11.0); Carbon Dioxide 25.2 mmol/L (21.0-32.0); Chloride 103 mmol/L (98-108); Cholesterol 178 mg/dL (<=200); Creatinine, Serum 1.08 mg/dL (0.70-1.20); EST Glomerular Filtration Rate 84 (>60); Globulin 2.5 g/dL (2.2-4.2); Glucose 85 mg/dL (70-99); High Density Lipoprotein 86 mg/dL; Low Density Lipoprotein Calc. 83 mg/dL; Potassium 4.5 mmol/L (3.3-5.1); Protein, Total 6.7 g/dL (5.9-8.4); Sodium Level 139 mmol/L (133-145); Total Bilirubin 0.71 mg/dL (0.00-1.30); Triglycerides 43 mg/dL; Very Low Density Lipoprotein 9 mg/dL (5-40); cholesterol:hdl ratio screen 2.06
== END | disposition home or self-care (01) ==
LOC: BIMLAB 15:23
PROVIDERS: Nurse Practitioner Family; PCP Internal Medicine; Referring Provider Internal Medicine Endocrinology, Diabetes & Metabolism; Visit Provider Internal Medicine Endocrinology, Diabetes & Metabolism
DX: E10.9 Type 1 diabetes mellitus without complications (principal); Z12.5 Encounter for screening for malignant neoplasm of prostate
CPT/HCPCS: 36415; 80053; 80061; 82043; 82570; 84153; 84443; G0103